=== PATIENT | female | born 1940 | race Caucasian/White ===

== ENCOUNTER → 2017-02-13 10:07 | Outpatient (CLI) | payer MEDICARE, OTHER, SELFPAY ==
[2017-02-13 10:52] LABS: Blood Urea Nitrogen 17 mg/dL (7-18); Creatinine,Serum 1.03 mg/dL (0.55-1.02); Estimated Glomerular Filt Rate 52 ml/min (>60); GFR (African American) > 60 ML/MIN (>60)
--- NOTE | 2017-02-13 10:56 | CT_ITS ---
CT chest w con HISTORY: Left-sided chest pain and swelling following injury ORDERING PHYSICIAN: Laith Agee MD PATIENT AGE: 76 years TECHNIQUE: Helical acquisition obtained following the bolus administration of 75 mL of Isovue 370 followed by a saline bolus. Axial, sagittal, and coronal reformatted images are generated and reviewed. COMPARISON: None FINDINGS: The thoracic aorta has an unremarkable appearance without evidence of aneurysm or dissection. No central pulmonary embolus apparent. There is prominence of the left atrial appendage incidentally noted. Normal heart size without evidence of pericardial effusion. No mediastinal or hilar mass or adenopathy. There are a few noncalcified pulmonary nodules including a 3 mm nodule right upper lobe laterally and a 5 mm nodule also in the right upper lobe laterally as well as a 4 mm nodule left upper lobe anteriorly. Atelectatic changes are present in the lung bases slightly more extensive on the left compared to the right. There is trace left-sided pleural effusion. There is no evidence of pneumothorax. There is an minimally displaced fracture involving the lateral aspect of the left ninth rib with some mild soft tissue swelling in this area. The underlying spleen has an unremarkable appearance. IMPRESSION: 1. Minimally displaced left ninth rib fracture laterally with adjacent soft tissue swelling 2. Trace left pleural effusion with left basilar atelectasis. 3. Scattered noncalcified pulmonary nodules nonspecific measuring up to 5 mm. Consider 6 month follow-up if patient is at high risk for neoplasm and one year follow-up if patient is not at high risk for neoplasm
--- NOTE | 2017-02-13 10:56 | CT_ITS ---
CT abdomen pelvis w con CLINICAL INDICATION: Left sided abdominal pain following injury ORDERING PHYSICIAN: Laith Agee MD PATIENT AGE: 76 years COMPARISON: None TECHNIQUE: Axial images obtained with sagittal and coronal reformats. PROCEDURE: Oral Contrast: None IV Contrast: 75 minutes Isovue-370. FINDINGS: There is trace left-sided pleural effusion with mild left basilar atelectasis. Minimal displaced left ninth rib fracture is present laterally. The spleen has an unremarkable appearance. No evidence of splenic laceration or subcapsular hematoma. The liver, adrenal glands, and pancreas are unremarkable. No renal calculi, hydronephrosis, or renal mass. No obstructing ureteral calculi. Unremarkable bowel gas pattern. No obstruction or free air. No focal inflammatory change. No evidence of appendicitis or diverticulitis. IMPRESSION: 1. Minimally displaced left ninth rib fracture laterally with trace left effusion and mild left basilar atelectasis. 2. No evidence of splenic laceration or subcapsular hematoma. 3. No acute intra-abdominal findings
== END ==
PROVIDERS: Family Provider Internal Medicine Adolescent Medicine; PCP Internal Medicine Adolescent Medicine; Visit Provider Internal Medicine Adolescent Medicine
DX: S20.212A Contusion of left front wall of thorax, initial encounter (principal); R19.07 Generalized intra-abdominal and pelvic swelling, mass and lump
CPT/HCPCS: 36415; 71260; 74177; 82565; 84520; Q9967

== ENCOUNTER → 2017-06-07 09:03 | Outpatient (CLI) | payer MEDICARE, OTHER, SELFPAY ==
--- NOTE | 2017-06-07 11:01 | XR_ITS ---
DEXA SCAN.-BONE DENSITY STUDY HIPS AND LUMBAR SPINE HISTORY: 76-year-old Postmenopausal female. TECHNIQUE: DEXA scan hip and lumbar spine The most complete data summary and color graphic presentation of the today's ( and any prior ) DEXA findings are available in PACS. Definition and treatment guidelines included. COMPARISON: None listed LUMBAR SPINE: Overall mean T score equal -2.5 L2 vertebral body demonstrates the lowest T score -3.2 with BMD0.812 g/cm sq Overall mean lumbar L1-L4 T score -2.5 with BMD0.874 g/cm sq . . HIPS: Femoral neck density is best predictor of hip fracture risk . Right femoral neck demonstrates the lowest T score score -2.2 with BMD0.78 g/cm sq Left femoral neck T score -1.8 with BMD 0.783 Averaging all regions at hips yields today's Hip Mean T score -2.5 with BMD0.696 g/cm sq . = Borderline/early osteoporosis IMPRESSION 1. LUMBAR SPINE: Overall T score = -2.5 reflects borderline, early osteoporosis The lowest T score value = -3.2 is seen at the L2 vertebral body. 2. HIPS: Overall T score -2.5 suggest Borderline, early osteoporosis The lower right femoral neck T score = -2.2 reflecting osteopenia at femoral necks WHO criteria for post-menopausal, Women: Normal: T-score at or above -1 SD Osteopenia: T-score between -1 and -2.5 SD Osteoporosis: T-score at or below -2.5 SD Post-stress ABIs: Immediate post stress right KARLA= 1.22 Immediate post stress left KARLA= 1.18 2.. Normal rest study right. Normal bilateral ABIs . Normal pulses and waveforms 3. Normal immediate post stress study. no exercise-induced ischemic nor decreased flow immediate post. In fact increased BP postexercise observed DEXA
== END ==
PROVIDERS: Family Provider Internal Medicine Adolescent Medicine; PCP Internal Medicine Adolescent Medicine; Visit Provider Internal Medicine Adolescent Medicine
DX: Z78.0 Asymptomatic menopausal state (principal); Z13.820 Encounter for screening for osteoporosis
CPT/HCPCS: 77080

== ENCOUNTER → 2017-06-24 11:47 | Outpatient (CLI) | payer MEDICARE, OTHER, SELFPAY ==
--- NOTE | 2017-06-24 11:55 | XR_ITS ---
XR wrist RT min 3V HISTORY ITS.REASON: RT WRIST PAIN,FALL ORDERING PHYSICIAN: Laith Agee MD PATIENT AGE: 76 years COMPARISON: None FINDINGS: There are mild osteoarthritic changes at the scaphotrapezium joint. No acute fracture or dislocation evident. IMPRESSION: Osteoarthritis of the scaphotrapezium joint, no acute finding
[2017-06-24 14:30] LABS: Basophils % 0.1 % (0.1-2.0); Eosinophils % 0.6 % (0.1-12.0); Hematocrit 42.4 % (37.0-47.0); Hemoglobin 13.9 g/dL (12.2-16.2); Lymphocytes # 1.4 K/mm3 (0.7-4.5); Lymphocytes % 24.6 K/mm3 (10-50); Mean Corpuscular HGB Conc 32.8 g/dL (31.8-35.4); Mean Corpuscular Hemoglobin 28.5 pg (27.0-31.2); Mean Corpuscular Volume 86.7 fl (81-99); Mean Platelet Volume 9.1 fl (7.4-10.4); Monocytes # 0.4 K/mm3 (0.1-1.0); Monocytes % 6.9 % (1.7-9.3); Neutrophils # 3.9 K/mm3 (1.8-7.8); Neutrophils % 67.7 % (37.0-80.0); Platelet Count 252 K/mm3 (142-424); Red Blood Count 4.89 M/mm3 (4.20-5.40); Red Cell Distribution Width 13.2 % (11.5-17.5); White Blood Count 5.8 K/mm3 (4.8-10.8)
[2017-06-24 14:48] LABS: Alanine Aminotransferase 25 U/L (12-78); Albumin Level 3.8 gm/dL (3.4-5.0); Albumin/Globulin Ratio 1.2 (1.1-1.8); Alkaline Phosphatase 113 U/L (46-116); Anion Gap 14.8 mEq/L (5-15); Aspartate Amino Transferase 16 U/L (15-37); Bilirubin,Total 0.6 mg/dL (0.2-1.0); Blood Urea Nitrogen 20 mg/dL (7-18); Calcium 9.4 mg/dL (8.5-10.1); Carbon Dioxide 26 mmol/L (21.0-32.0); Chloride 104 mmol/L (98-107); Creatinine,Serum 0.92 mg/dL (0.55-1.02); Estimated Glomerular Filt Rate 59 ml/min (>60); Free Thyroxine Index 2.7 ug/dL (5.93-13.13); GFR (African American) 72 ML/MIN (>60); Globulin 3.3 gm/dl (1.3-3.2); Glucose 87 mg/dL (74-106); Potassium 4.8 mmoL/L (3.5-5.1); Sodium 140 mmol/L (136-145); T4 (Thyroxine) 7.5 ug/dl (4.7-13.3); Thyroid Stimulating Hormone 1.48 uIU/ml (0.358-3.740); Total Protein,Serum 7.1 gm/dL (6.4-8.2); Triiodothryronine (T3) Uptake 36 % (31-39)
[2017-06-25 15:16] LABS: Vitamin B12 450 pg/mL (232-1245)
[2017-06-27 06:30] LABS: Methylmalonic Acid 263 nmol/L (0-378)
== END ==
PROVIDERS: PCP Internal Medicine Adolescent Medicine; Visit Provider Internal Medicine Adolescent Medicine
DX: M25.531 Pain in right wrist (principal); R27.0 Ataxia, unspecified; R47.89 Other speech disturbances; W19.XXXA Unspecified fall, initial encounter
CPT/HCPCS: 36415; 73110; 80053; 82131; 82607; 84436; 84443; 84479; 85025

== ENCOUNTER → 2017-06-28 15:54 | Outpatient (CLI) | payer MEDICARE, OTHER, SELFPAY ==
--- NOTE | 2017-06-28 15:56 | MR_ITS ---
MR head/brain wo con Ordering Physician: Laith Agee MD Patient Age: 76 years: Female HISTORY: ITS.REASON: ATAXIA ... Is submitted history with MRI order / technologist history states:,Can't get words out what she wants to say to come out since 2013 which may reflectapraxia history TECHNIQUE: noncontrast Multiplanar FLAIR, T1, T2 weighted images along with axial diffusion/ADC imaging performed on 1.5 T. Siemens, MRI.. COMPARISON MR brain 11/26/2016 FINDINGS No recent nor acute infarction is evident. No mass lesion or mass effect The ventricles appear normal. No hydrocephalus. Basal cisternsappear normal. . Overall brain is very well maintained for this age patient with only minor cerebral atrophy. Subtle Rim of high signal surrounding the anterior horn reflect aging changes of the ependyma here. Would only note 2 white matter high signal dots of increased signal on the sensitive FLAIR images. These are seen at the left cerebral hemisphere axial image 19 (just left of midline & deep to the sensory strip); and a second questionable pinpoint high signal focus on axial 17 just above the atria of the lateral ventricle & barely appreciable... These are minor, unimpressive, barely appreciable but likely due to reflect some very minor small vessel deep white matter ischemic gliotic foci. However this patient with less, fewer deep white matter findings typically seen in this age patient Pituitary sella unremarkable. Optic chiasm unremarkable. Speech centers unremarkable Posterior fossa. Appears satisfactory. No atrophy. Well-developed. No lesions. CP angles clear. Cranial nerve VII and VIII appears satisfactory. Mastoid air cells unremarkable. The cranial cervical junction appears overall satisfactory.. Only mildly accentuated angle at as in drapes slightly over the dens leading to the cervical cord. Adequate volume craniocervical junction and the cerebellar tonsils appear normal Uppermost C-spine demonstrates minimal cervical spondylosis at C3/4. Does not appear to be of significance.Otherwise the paranasal sinuses are clear. Orbits unremarkable IMPRESSION: No significant change since MRI of the brain November 2016. No acute finding. No territorial infarct. No mass lesion. No prominent findings , only very minor subtle observations, typical of age.. (Only suggestion ofq 2 very tiny pinpoint white matter high signal foci left cerebral hemisphere, Barely appreciable noted)
== END ==
PROVIDERS: Family Provider Internal Medicine Adolescent Medicine; PCP Internal Medicine Adolescent Medicine; Visit Provider Internal Medicine Adolescent Medicine
DX: R27.0 Ataxia, unspecified (principal); R47.89 Other speech disturbances
CPT/HCPCS: 70551

== ENCOUNTER 2017-09-25 09:00 | Outpatient (RCR) | payer MEDICARE, OTHER, SELFPAY ==
--- NOTE | 2017-09-18 10:52 | HMH.SLAPHASI ---
Speech & Language Evaluation Speech/Language Aphasia Evaluation Start: 09/18/17 09:45 Freq: once Status: Complete Protocol: Document 09/18/17 09:45 SUSIE (Rec: 09/18/17 10:52 SUSIE [id number]) Aphasia Assessment/Goals/Plan Assessment Date of Evaluation: 09/18/17 Evaluation Type Initial Certification Assessment/Problems Pt. reports difficulty with saying words. Does Patient Qualify for Service Yes Qualify/Failure Comment Mrs. Lilly presents with misarticulations, omissions and groping movements of her articulators. Symptoms persistant with apraxia of speech. Plan Pt will be seen # times/week 2 for # weeks 8 Anticipate reaching STG in # weeks 4 Anticipate reaching LTG in # weeks 8 Pt/Guardian verbally ack understanding Yes of dx/prognosis/goals Pt/Guardian verbally ack understanding Yes of/consent to tx prog G -code Required Yes G-CODES ST Current Status [id number] Speech ST Current Status Modifier CJ-At least 20% but less than 40% impaired, limited or restricted ST Goal Status [id number] Speech ST Goal Status Modifier CJ-At least 20% but less than 40% impaired, limited or restricted STG-Verbal Expressive Language Automatic Speech 80 Repetitive Abilities 80 STG-Intell/Buccal/Labial Strength Intelligibility 80 Quality Improvement Analyst Goals Increase oral motor tone to improve Yes intelligibility. Increase intelligibility w/use of Yes traditional articulation treatment. Education Instructions provided Mrs. Lilly, verbally aknowledged evaluation results and agrees to therapy. She wants to initiate therapy to learn compensatory strategies, anxiety reduction for speech, and improve articulation. Pt/Caregiver Able to Recall Information Able to recall/restate Reinforcement needed No Speech & Language HPI History Present Illness Description of Patient Problem Mrs. Lilly reports she has had difficulty with her speech since 2015. She reports having diffiuculty forming words. She says she knows what she wants to say, but cannot get it to c
== END 2017-09-25 09:01 | disposition home or self-care (01) ==
LOC: ST 09:00
PROVIDERS: Family Provider Internal Medicine Adolescent Medicine; PCP Internal Medicine Adolescent Medicine; Visit Provider Internal Medicine Adolescent Medicine
DX: R47.01 Aphasia (principal); R47.89 Other speech disturbances
CPT/HCPCS: 92507; 92523; 97532

== ENCOUNTER → 2017-11-06 09:42 | Outpatient (CLI) | payer MEDICARE, OTHER, SELFPAY ==
--- NOTE | 2017-11-06 10:31 | MR_ITS ---
MR head/brain wo con HISTORY: Slurred speech, history of brain tumors, family history of brain tumors ITS.REASON: SLURRED SPEECH, HX BRAIN TUMORS ORDERING PHYSICIAN: Brian Cade PATIENT AGE: 77 years Comparison: None TECHNIQUE: Standard multiplanar multiecho sequences are performed without contrast. FINDINGS: No midline shift, mass effect, intracranial hemorrhage, or hydrocephalus is evident. There is mild generalized atrophy. No evidence of infarction. The cerebellopontine angles, cerebellum, and brainstem are unremarkable. There is normal orta-white matter differentiation. A tiny T2 white matter hyperintensity once again noted in the left parietal lobe unchanged and nonspecific. The pituitary, optic chiasm, and cerebellar tonsils are unremarkable. The hippocampal gyri are unremarkable in the temporal horns are symmetric. No mastoid effusion or sinus air-fluid level. IMPRESSION: 1. Essentially negative MRI of the brain without contrast with no significant change from 06/28/2017. 2. No intra or extra-axial mass is apparent. No evidence of acute infarction
[2017-11-06 11:41] LABS: Basophils % 0.1 % (0.1-2.0); Eosinophils # 0.1 K/mm3 (0.0-0.4); Eosinophils % 1.4 % (0.1-12.0); Hematocrit 41.9 % (37.0-47.0); Hemoglobin 13.5 g/dL (12.2-16.2); Lymphocytes # 1.4 K/mm3 (0.7-4.5); Lymphocytes % 28.2 K/mm3 (10-50); Mean Corpuscular HGB Conc 32.2 g/dL (31.8-35.4); Mean Corpuscular Hemoglobin 28.3 pg (27.0-31.2); Mean Corpuscular Volume 87.8 fl (81-99); Mean Platelet Volume 8.6 fl (7.4-10.4); Monocytes # 0.4 K/mm3 (0.1-1.0); Monocytes % 7.1 % (1.7-9.3); Neutrophils # 3.2 K/mm3 (1.8-7.8); Neutrophils % 63.1 % (37.0-80.0); Platelet Count 232 K/mm3 (142-424); Red Blood Count 4.77 M/mm3 (4.20-5.40); Red Cell Distribution Width 13.2 % (11.5-17.5)
[2017-11-06 12:00] LABS: Alanine Aminotransferase 21 U/L (12-78); Albumin Level 3.4 gm/dL (3.4-5.0); Albumin/Globulin Ratio 1.1 (1.1-1.8); Alkaline Phosphatase 116 U/L (46-116); Anion Gap 11.8 mEq/L (5-15); Aspartate Amino Transferase 14 U/L (15-37); Bilirubin,Total 0.5 mg/dL (0.2-1.0); Blood Urea Nitrogen 19 mg/dL (7-18); Calcium 8.9 mg/dL (8.5-10.1); Carbon Dioxide 29 mmol/L (21.0-32.0); Chloride 104 mmol/L (98-107); Cholesterol 191 mg/dL (140-200); Creatinine,Serum 0.93 mg/dL (0.55-1.02); Estimated Glomerular Filt Rate 58 ml/min (>60); Free T4 (Free Thyroxine) 0.97 ng/dl (0.76-1.46); GFR (African American) 71 ML/MIN (>60); Globulin 3.1 gm/dl (1.3-3.2); Glucose 82 mg/dL (74-106); HDL Cholesterol 64 mg/dL (29-89); LDL Cholesterol 106 mg/dL (0-130); Potassium 4.8 mmoL/L (3.5-5.1); Sodium 140 mmol/L (136-145); Thyroid Stimulating Hormone 2.47 uIU/ml (0.358-3.740); Total Protein,Serum 6.5 gm/dL (6.4-8.2); Triglycerides 103 mg/dL (30-200); VLDL Cholesterol 21 mg/dL (0-40)
[2017-11-07 08:38] LABS: Vitamin D 25 Hydroxy 36.5 ng/mL (30.0-100.0)
[2017-11-07 12:55] LABS: Vitamin B12 441 pg/mL (232-1245)
== END ==
PROVIDERS: PCP Family Medicine; Visit Provider Family Medicine
DX: R47.81 Slurred speech (principal); R05 Cough; E78.2 Mixed hyperlipidemia; R53.83 Other fatigue; Z85.841 Personal history of malignant neoplasm of brain
CPT/HCPCS: 36415; 70551; 80053; 80061; 82607; 82652; 84439; 84443; 85025

== ENCOUNTER → 2018-07-30 09:02 | Outpatient (CLI) | payer MEDICARE, OTHER, SELFPAY ==
--- NOTE | 2018-07-30 09:50 | MR_ITS ---
MR head/brain w con A HISTORY: ITS.REASON: EXPRESSIVE APHASIA ORDERING PHYSICIAN: Wendy Milan PATIENT AGE: 77 years Comparison: 11/06/2017 TECHNIQUE: Standard multiplanar multiecho sequences are performed with gadolinium enhancement only. Standard pre enhanced T1 weighted images and standard T2/FLAIR weighted images and diffusion images were not performed. FINDINGS: No midline shift or mass effect is evident. There is a small area of subdural enhancement in the left sylvian region measuring 12 x 6 x 9 mm and may represent a small meningioma. No mass effect evident. No overlying edema. No other abnormal areas of enhancement are evident. IMPRESSION: 12 x 6 x 9 mm mildly enhancing subdural lesion in the left sylvian area consistent with a small meningioma
[2018-07-30 10:38] LABS: Alanine Aminotransferase 38 U/L (12-78); Albumin Level 3.4 gm/dL (3.4-5.0); Alkaline Phosphatase 102 U/L (46-116); Anion Gap 11.6 mEq/L (5-15); Aspartate Amino Transferase 27 U/L (15-37); Bilirubin,Total 0.4 mg/dL (0.2-1.0); Blood Urea Nitrogen 16 mg/dL (7-18); Calcium 8.3 mg/dL (8.5-10.1); Carbon Dioxide 27 mmol/L (21.0-32.0); Chloride 106 mmol/L (98-107); Creatinine,Serum 1.05 mg/dL (0.55-1.02); Estimated Glomerular Filt Rate 51 ml/min (>60); GFR (African American) 61 ML/MIN (>60); Globulin 3.4 gm/dl (1.3-3.2); Glucose 93 mg/dL (74-106); Potassium 4.6 mmoL/L (3.5-5.1); Sodium 140 mmol/L (136-145); Total Protein,Serum 6.8 gm/dL (6.4-8.2)
--- NOTE | 2018-07-30 11:06 | HMH.ITSHM ---
Current Home Medications as stated by this patient Jalyn Lilly or field representatives director. []ASPIRIN
[2018-07-30 11:20] LABS: Erythrocyte Sedimentation Rate 14 mm/hr (0-30)
[2018-07-30 14:02] LABS: Basophils % 0.1 % (0.1-2.0); Eosinophils # 0.1 K/mm3 (0.0-0.4); Eosinophils % 1.2 % (0.1-12.0); Hematocrit 41.1 % (37.0-47.0); Lymphocytes # 1.5 K/mm3 (0.7-4.5); Lymphocytes % 28.2 % (10-50); Mean Corpuscular HGB Conc 31.7 g/dL (31.8-35.4); Mean Corpuscular Hemoglobin 26.7 pg (27.0-31.2); Mean Corpuscular Volume 84.3 fl (81-99); Monocytes # 0.4 K/mm3 (0.1-1.0); Monocytes % 7.8 % (1.7-9.3); Neutrophils # 3.3 K/mm3 (1.8-7.8); Neutrophils % 62.7 % (37.0-80.0); Platelet Count 254 K/mm3 (142-424); Red Blood Count 4.87 M/mm3 (4.20-5.40); Red Cell Distribution Width 13.1 % (11.5-17.5); White Blood Count 5.2 K/mm3 (4.8-10.8)
[2018-07-31 18:58] LABS: Folate 12.7 ng/mL (>3.0); Vitamin B12 441 pg/mL (232-1245)
== END ==
PROVIDERS: Referring Provider Psychiatry & Neurology Neurology; Visit Provider Psychiatry & Neurology Neurology
DX: R41.89 Other symptoms and signs involving cognitive functions and awareness (principal)
CPT/HCPCS: 36415; 70552; 80053; 82607; 82746; 85025; 85651; A9576

== ENCOUNTER → 2018-10-14 09:18 | Outpatient (CLI) | payer MEDICARE, OTHER, SELFPAY | PROVIDERS: PCP Family Medicine; Visit Provider Psychiatry & Neurology Neurology | DX: G31.01 Pick's disease (principal) | CPT/HCPCS: 95819 ==

== ENCOUNTER → 2019-02-24 11:28 | Outpatient (CLI) | payer MEDICARE, OTHER, SELFPAY ==
--- NOTE | 2019-02-24 11:51 | ECG_ITS ---
APPROVED REPORT Exam: Resting ECG HR:50 bpm ECG Measurements Heart Rate 50 AXES NM 120 P 54 QRSd 78 QRS 10 QT 446 T 22 QTc 406 <Conclusion> Sinus bradycardia with occasional premature ventricular complexes Left atrial abnormality Borderline ECG Electronically signed by : Laith Agee, 02/26/2019 07:38:40
[2019-02-24 12:05] LABS: Basophils % 0.2 % (0.1-2.0); Eosinophils % 0.3 % (0.1-12.0); Hematocrit 43.3 % (37.0-47.0); Hemoglobin 14.1 g/dL (12.2-16.2); Lymphocytes # 1.9 K/mm3 (0.7-4.5); Lymphocytes % 20.1 % (10-50); Mean Corpuscular HGB Conc 32.5 g/dL (31.8-35.4); Mean Corpuscular Hemoglobin 28.8 pg (27.0-31.2); Mean Corpuscular Volume 88.5 fl (81-99); Mean Platelet Volume 8.5 fl (7.4-10.4); Monocytes # 0.6 K/mm3 (0.1-1.0); Monocytes % 5.8 % (1.7-9.3); Neutrophils # 7.1 K/mm3 (1.8-7.8); Neutrophils % 73.6 % (37.0-80.0); Platelet Count 326 K/mm3 (142-424); Red Cell Distribution Width 13.3 % (11.5-17.5); White Blood Count 9.6 K/mm3 (4.8-10.8)
[2019-02-24 13:22] LABS: Alanine Aminotransferase 24 U/L (12-78); Albumin Level 3.7 gm/dL (3.4-5.0); Albumin/Globulin Ratio 1.2 (1.1-1.8); Alkaline Phosphatase 115 U/L (46-116); Anion Gap 13.6 mEq/L (5-15); Aspartate Amino Transferase 15 U/L (15-37); Bilirubin,Total 0.6 mg/dL (0.2-1.0); Blood Urea Nitrogen 18 mg/dL (7-18); Calcium 9.2 mg/dL (8.5-10.1); Carbon Dioxide 27 mmol/L (21.0-32.0); Chloride 101 mmol/L (98-107); Creatinine,Serum 1.02 mg/dL (0.55-1.02); Estimated Glomerular Filt Rate 52 ml/min (>60); GFR (African American) 63 ML/MIN (>60); Globulin 3.1 gm/dl (1.3-3.2); Glucose 91 mg/dL (74-106); Potassium 4.6 mmoL/L (3.5-5.1); Sodium 137 mmol/L (136-145); Total Protein,Serum 6.8 gm/dL (6.4-8.2)
== END ==
PROVIDERS: Visit Provider Orthopaedic Surgery
DX: Z01.818 Encounter for other preprocedural examination (principal); S52.532A Colles' fracture of left radius, initial encounter for closed fracture; S52.612A Displaced fracture of left ulna styloid process, initial encounter for closed fracture
CPT/HCPCS: 36415; 80053; 85025; 93005

== ENCOUNTER → 2019-03-17 14:25 | Outpatient (CLI) | payer MEDICARE, OTHER, SELFPAY ==
--- NOTE | 2019-03-17 14:30 | XR_ITS ---
PROCEDURE: XR WRIST LT MIN 3V CLINICAL INDICATION: sp ORIF LT wrist, dos 03/02/19 Follow-up surgery/fracture COMPARISON: WRISTCMRT XR wrist RT min 3V from 06/24/2017 XR WRIST LT MIN 3V from 02/22/2019 XR WRIST LT 2V from 03/02/2019 FINDINGS: Studies obtained through a cast. There is a volar bone plate stabilizing distal radial fracture with good alignment. Nondisplaced ulnar avulsion fracture also noted.. Osteoarthritic changes are present at the scapho trapezium and 1st metacarpal-carpal joint IMPRESSION: Good alignment status post ORIF distal radial fracture Dictated by: Ethan Murguia MD 03/17/2019 18:13 Electronically signed by Ethan Murguia MD in [place] 03/17/2019 18:13
== END ==
PROVIDERS: PCP Internal Medicine Adolescent Medicine; Visit Provider Orthopaedic Surgery
DX: Z48.89 Encounter for other specified surgical aftercare (principal); S52.612A Displaced fracture of left ulna styloid process, initial encounter for closed fracture
CPT/HCPCS: 73110

== ENCOUNTER → 2019-04-07 12:18 | Outpatient (CLI) | payer MEDICARE, OTHER, SELFPAY ==
--- NOTE | 2019-04-07 12:22 | XR_ITS ---
PROCEDURE: XR WRIST LT MIN 3V CLINICAL INDICATION: sp ORIF lt wrist; OUT OF CAST Follow-up ORIF COMPARISON: WRISTCMRT XR wrist RT min 3V from 06/24/2017 XR WRIST LT MIN 3V from 02/22/2019 XR WRIST LT MIN 3V from 03/17/2019 FINDINGS: Cast has been removed. Volar bone plate remains in place stabilizing the distal radial fracture with good alignment. There is sclerosis developing at the fracture site. There is avulsion of the ulnar styloid. Degenerative changes are present involving the scapho trapezium and 1st metacarpal-carpal joint. IMPRESSION: Status post ORIF healing distal radial fracture with good alignment Dictated by: Ethan Murguia MD 04/07/2019 16:11 Electronically signed by Ethan Murguia MD in [place] 04/07/2019 16:11
== END ==
PROVIDERS: PCP Internal Medicine Adolescent Medicine; Visit Provider Orthopaedic Surgery
DX: Z48.89 Encounter for other specified surgical aftercare (principal); S52.502D Unspecified fracture of the lower end of left radius, subsequent encounter for closed fracture with routine healing
CPT/HCPCS: 73110

== ENCOUNTER 2019-04-07 13:25 | Outpatient (RCR) | payer MEDICARE, OTHER, SELFPAY | END 2019-04-07 14:00 | disposition home or self-care (01) | LOC: OT 13:25 | PROVIDERS: Visit Provider Orthopaedic Surgery | DX: S52.532A Colles' fracture of left radius, initial encounter for closed fracture (principal); S52.612A Displaced fracture of left ulna styloid process, initial encounter for closed fracture | CPT/HCPCS: 97763 ==

== ENCOUNTER 2019-04-24 10:00 | Outpatient (RCR) | payer MEDICARE, OTHER, SELFPAY ==
--- NOTE | 2018-10-07 13:21 | HMH.SLAPHASI ---
Speech & Language Evaluation Speech/Language Aphasia Evaluation Start: 10/07/18 12:56 Freq: once Status: Complete Protocol: Document 10/07/18 12:56 SHANAE (Rec: 10/07/18 13:20 SHANAE [id number]) Aphasia Assessment/Goals/Plan Assessment Date of Evaluation: 10/07/18 Evaluation Type Initial Certification Assessment/Problems Aphasia Does Patient Qualify for Service Yes Qualify/Failure Comment Scores indicate impairments in auditory comprehension, reading comprehension, and verbal expression. Plan Pt will be seen # times/week 2 for # weeks 8 Anticipate reaching STG in # weeks 4 Anticipate reaching LTG in # weeks 8 Pt/Guardian verbally ack understanding Yes of dx/prognosis/goals G -code Required Yes G-CODES ST Current Status [id number] Language Express ST Current Status Modifier CL-At least 60% but less than 80% impaired, limited or restricted ST Goal Status [id number] Language Express ST Goal Status Modifier CK-At least 40% but less than 60% impaired, limited or restricted STG-Auditory Comprehension Paragraph Level 80 STG-Reading Comprehension Reading Sentences & Ans Questions 80 Reading Paragraphs & Ans Questions 80 STG-Verbal Expressive Language Repetitive Abilities 80 Make Up Sentences 80 Define Words 80 Snf Goals Increase auditory comprehension skills Yes to communicate w/family & friends Increase verbal expression skills to Yes communicate w/family & friends. Increase cognitive skills to communicate Yes w/family & friends Speech & Language HPI History Present Illness Description of Patient Problem Aphasia Pt/Caregiver Concerns Word finding Rehab Services Assessed Speech therapy Is this evaluation r/t stroke? No Language Primary Language Swiss Aphasia Evaluations Communication Speech Intelligibility Good Auditory Comprehension Yes: Word Level Sentences Reading Comprehension Yes: Word Naming Verbal Expressive Language Yes: Automatic Speech Word Level Naming Naming Actions/Objects Written Language Yes: Signature Copy Shapes Copy Words Check Writing Sentence Writing AOM Comment Could not assess at this
== END 2019-04-24 11:00 | disposition home or self-care (01) ==
LOC: ST 10:00
PROVIDERS: PCP Family Medicine; Visit Provider Psychiatry & Neurology Neurology
DX: R47.01 Aphasia (principal)
CPT/HCPCS: 92507; 92523

== ENCOUNTER 2019-04-24 11:00 | Outpatient (RCR) | payer MEDICARE, OTHER, SELFPAY ==
--- NOTE | 2019-04-10 11:31 | HMH.PTOPEV ---
PT Outpatient Evaluation Rehab PT Outpatient Evaluation Start: 04/10/19 10:37 Freq: Status: Active Protocol: Document 04/10/19 10:37 EDUARDO (Rec: 04/10/19 11:31 [email or web address] [id number]) Electronically Signed By Cosme Barrera, DAJUAN 04/10/19 10:37 Outpatient Therapy Subjective History Subjective History Pt. is a 78 year old female who presents to outpatient PT clinic with reports of subacute and constant L wrist P! s/p L wrist ORIF distal radius fx. 6 weeks ago. Pt. reports she fell off of a stool and tried to catch herself with the LUE. Pt. reports donning L wrist brace at all times except for bathing. Recent diagnostic imaging positive for healing distal radial fracture with good alignment. Pt. RTMD 4 wks . from 04/07/19. PMH includes Alzhemier's disease and Aphasia. Chief Complaint Pain,Swelling Symptom Type Ache Symptoms Relieved By Rest/Positioning,Brace/Support Symptoms Aggravated By Physical Activity Prior Functional Limitations None Current Functional Limitations Lifting,Dressing,Recreation Activity Symptom Description Constant and Continuous Level of pain today (0-10) 1 Pain scale - at its best (0-10) 0 Pain scale - at its worst (0-10) 8 Wrist/Hand Eval Palpation Tenderness/Visual Exam Wrist pain left tenderness wrist exam standard left Wrist swelling left Wrist/Hand Palpation Findings Tenderness Wrist/Hand Palpation Overall Comment grade 2 +TTP to dorsal ulnar styloid Flexibility Deficits Wrist Extensors Muscle Length (L) Moderate Tightness Wrist Flexors Muscle Length (L) Moderate Tightness Wrist Range of Motion Left Wrist Limitations of Range of Motion Soft Tissue Tightness,Muscle Weakness,Pain Wrist Extension Active Range of Motion ( 17 degrees) Wrist Extension Passive Range of Motion 31 (degrees) Wrist Flexion Active Range of Motion ( 30 degrees) Wrist Flexion Passive Range of Motion ( 37 degrees) Wrist Radial Deviation Active Range of 14 Motion (degrees) Wrist Radial Deviation Passive Range of 19 Motion (degrees) Wrist Ulnar Deviation Active
== END 2019-05-13 15:00 | disposition home or self-care (01) ==
LOC: PT.CARL 11:00
PROVIDERS: PCP Internal Medicine Adolescent Medicine; Visit Provider Orthopaedic Surgery
DX: S52.532D Colles' fracture of left radius, subsequent encounter for closed fracture with routine healing (principal); S52.612D Displaced fracture of left ulna styloid process, subsequent encounter for closed fracture with routine healing; Z48.89 Encounter for other specified surgical aftercare
CPT/HCPCS: 97018; 97110; 97140; 97163

== ENCOUNTER 2019-04-26 13:02 | Inpatient (IN) ==
[2019-04-26 13:58] LABS: Appearance,Urine CLEAR (Clear); Bilirubin,Urine Negative (Negative); Blood, Urine 3+ (Negative); Color,Urine YELLOW (Yellow); Glucose,Urine (UA) Negative (Negative); Ketones,Urine Negative (Negative); Leukocyte Esterase,Urine TRACE (Negative); Microscopic, Urine URINE MICROSCOPIC (MICROSCOPIC); PH,Urine 5.5 (5.0-8.5); Protein,Urine 1+ (Negative); Specific Gravity, Urine >= 1.030 (1.005-1.030); Urobilinogen,Urine 0.2 EU/dl (0.2)
[2019-04-26 14:05] LABS: Albumin Level 4.4 g/dl (3.5-5.0); Albumin/Globulin Ratio 1.4 (1.1-1.8); Anion Gap 16.1 mEq/L (5-15); Bilirubin,Total 0.6 mg/dl (0.2-1.3); Eosinophils % 0.1 % (0.1-12.0); Globulin 3.1 g/dL (1.3-3.2); Hemoglobin 15.4 g/dL (12.2-16.2); Lymphocytes # 0.4 K/mm3 (0.7-4.5); Lymphocytes % 1.8 % (10-50); Mean Corpuscular HGB Conc 33.5 g/dL (31.8-35.4); Mean Corpuscular Volume 88.7 fl (81-99); Mean Platelet Volume 8.7 fl (7.4-10.4); Monocytes # 0.9 K/mm3 (0.1-1.0); Monocytes % 3.4 % (1.7-9.3); Neutrophils # 23.3 K/mm3 (1.8-7.8); Neutrophils % 94.7 % (37.0-80.0); Platelet Count 257 K/mm3 (142-424); Red Blood Count 5.18 M/mm3 (4.20-5.40); Red Cell Distribution Width 13.7 % (11.5-17.5); Total Protein,Serum 7.5 g/dl (6.3-8.2)
--- NOTE | 2019-04-26 14:07 | Emergency Department Note ---
ED Disposition Clinical Impression: Gastroenteritis, Sepsis, Enteritis Disposition: Admitted as Observation Condition on Discharge: Good Instructions: DI for Diarrhea and Traveler's Diarrhea -- Adult, DI for Diarrhea and Traveler's Diarrhea -- Child, DI for Nausea -- Adult, DI for Nausea -- Child Additional Instructions: I spoke to Dr. Gomez for admission with this patient and he did agree. Prescriptions: Ondansetron [Zofran 4mg ODT] 4 mg PO TID PRN 3 Days #12 tab.rapdis PRN Reason: Nausea Transmission Status: Received by [id number] Referrals: Laith Agee MD [Primary Care Provider] - - Critical Care Critical Care Time: No Attestation: On 04/26/19, the high probability of a clinically significant, sudden or life threatening deterioration of the following system(s) required my full and direct attention, intervention and personal management. The time I documented below is in addition to time spent performing reported procedures but includes the following listed in this critical care notation. Medical Decision Making - Medical Records Medical records reviewed: Yes: I reviewed the patient's medical records. - Mason Inquiry Pt receiving controlled substance: No Vital Signs: 04/26/19 13:33 Temperature 98.3 F Temperature Source Oral Pulse Rate [Left Radial] 102 H Respiratory Rate 20 Blood Pressure [Right Arm] 137/76 Blood Pressure Mean [Right Arm] 96 Blood Pressure Position [Right Arm] Sitting 02 Sat by Pulse Oximetry 98 Oxygen Delivery Method Room Air - Lab Data Lab results reviewed: Yes: I reviewed the patient's lab results. Lab Results 04/26/19 13:35: Urine Color Yellow, Urine Appearance Clear, Urine pH 5.5, Ur Specific [place] >= 1.030, Urine Protein 1+, Urine Glucose (UA) Negative, Urine Ketones Negative, Urine Blood 3+, Urine Nitrate Negative, Urine Bilirubin Negative, Urine Urobilinogen 0.2, Ur Leukocyte Esterase Trace, Urine RBC 3-5, Urine WBC 10-20, Ur Squamous Epith Cells Occasional, Ur Transition Epith Cell 3- 5, Amorphous Sediment 1+, Urine Bacteria None, Hyaline Casts Occasional 04/26/19 13:35: WBC 24.0 H*, RBC 5.18, Hgb 15.4, Hct 46.0, MCV 88.7, MCH 29.7, MCHC 33.5, RDW 13.7, Plt Count 257, MPV 8.7, Neut % (Auto) 94.7 H, Lymph % (Auto) 1.8 L, [place] % (Auto) 3.4, Eos % (Auto) 0.1, Baso % (Auto) 0.0 L, Neut # (Auto) 23.3 H, Lymph # (Auto) 0.4 L, [place] # (Auto) 0.9, Eos # (Auto) 0.0, Baso # (Auto) 0.0, Total Counted 100, Neutrophils % (Manual) 94 H, Lymphocytes % (Manual) 1 L, Monocytes % (Manual) 5, Platelet Estimate Normal, RBC Morphology Normal 04/26/19 13:35: Sodium 135 L, Potassium 4.1, Chloride 97 L, Carbon Dioxide 26, Anion Gap 16.1 H, BUN 17, Creatinine 0.90, Estimated Creat Clear 56, Estimated GFR 60, Est GFR ( Amer) 73, Glucose 173 H, Calcium 10.0, Total Bilirubin 0.6, AST 34, ALT 41, Alkaline Phosphatase 100, Total Protein 7.5, Albumin 4.4, Globulin 3.1, Albumin/Globulin Ratio 1.4, Amylase 110 04/26/19 13:35: Troponin I 0.15 H, Lipase 501 H 04/26/19 14:25: Lactate 4.1 H Result diagrams: 04/26/19 13:35 04/26/19 13:35 Orders (Tests/Meds): ED MEDICATIONS Generic Name Dose Route Start Last Admin Trade Name Freq PRN Reason Stop Dose Admin Sodium Chloride 2,310 mls @ 1,155 mls/hr 04/26/19 15:03 Sod Chlor 0.9% 1000ml Bag 30 ml/kg infuse over 2 hr (2310 ml) 04/26/19 17:02 IV .Q2H ONE Discontinued Medications Generic Name Dose Route Start Last Admin Trade Name Freq PRN Reason Stop Dose Admin Sodium Chloride 1,000 mls @ 999 mls/hr 04/26/19 13:45 04/26/19 13:49 Sod Chlor 0.9% 1000ml Bag IV 04/26/19 14:45 999 mls/hr .Q1H1M RAJESH Administration Ioversol 75 ml 04/26/19 14:59 04/26/19 15:00 Rad-Optiray 350 150ml Vial IV 04/26/19 15:00 75 ml ONCE ONE Administration Sodium Chloride 10 ml 04/26/19 14:59 04/26/19 15:00 Rad-Saline Flush 10ml Syringe IV 04/26/19 15:00 10 ml ONCE ONE Administration ORDERS Category Date Time Status Troponin I Q3H Lab 04/26/19 16:45 Ordered Troponin I Q3H Lab 04/26/19 19:45 Ordered Blood Culture Stat Micro 04/26/19 14:15 Received Urine Culture Stat Micro 04/26/19 13:35 Received - Radiology Data #1 Image(s): Chest Preliminary Findings: Abnormal (Lateral lower lobe atelectasis) - CT Data CT Scan: Abdomen Time Received: 15:30 Preliminary Findings: Abnormal (Enteritis seen in large intestine but no evidence of any obstruction or any other acute abdominal pathology) - Tissue Perfus/Sepsis Re-Eval Sepsis Re-Evaluation Performed: Yes Date Performed: 04/26/19 Time Performed: 15:33 Nausea/Vomiting/Diarrhea HPI - General Chief complaint: Nausea/Vomiting/Diarrhea Stated complaint: Vomiting, Diarrhea, chills Time Seen by Provider: 04/26/19 14:00 Mode of Arrival: Ambulatory Source of Information: Patient, Relative Limitations: Language Barrier Description of Symptoms (Recalled from ER Triage Doc. by RN): TO ED PER [facility] [facility] WITH C/O NAUSEA, VOMITING, DIARRHEA. GENERALIZED WEAKNESS X 1 WEEK SEEN LAST SATURDAY IN ED [facility] HX PER FAMILY PT WITH HX OF DEMENTIA. PT DENIES ANY ABD PAIN, FEVER, SICK CONTACTS - History of Present Illness HPI Narrative: 78-year-old female presents the ED with nausea and vomiting x2 days. She was seen at the [facility] and they did a flu screen on her and it did come back negative but they told her she had "" a touch of the flu. Unsure what that really means but nonetheless patient denies any other symptoms she does have Alzheimer's disease and is not a very good historian most the history was obtained from the son and . Patient denies any shortness of breath patient denies any cough patient denies any fever. - Related Data Home Medications Medication Instructions Recorded Confirmed memantine 10 mg tablet 10 mg PO QPM 02/24/19 04/07/19 rivastigmine 9.5 mg TRANSDERMA DAILY 02/24/19 04/07/19 Previous Rx's Medication Instructions Recorded Ondansetron [Zofran 4mg ODT] 4 mg PO TID PRN 3 Days #12 04/26/19 tab.rapdis Allergies Allergy/AdvReac Type Severity Reaction Status Date / Time No Known Allergies Allergy Verified 04/07/19 12:57 [facility] History - Hepatitis A Screen Drug use history?: No High risk sexual behaviors?: No History of sexually transmitted infection?: No Currently employed?: No Childcare worker?: No Do you have indoor plumbing?: Yes Do you have electricity?: Yes Attestation statement:: This patient has been screened for Hepatitis A risk factors. I have reviewed the patient's past medical history: Yes Medical History: Reports:: Dementia Denies:: Cancer, Diabetes Mellitus Type 1, Diabetes Mellitus Type 2, Internal Pacemaker, MRSA, Seizures Other Medical History: Reports: Arthritis. Denies: Blood Transfusion Reaction Other Surgeries: Yes: No Previous Surgery. No: Pacemaker Amputation: No Fractures: Yes - Social History Smoking Status: Never smoker Alcohol Intake: never Substance Use Type: denies use Occupational Status: other Housing: house Household Members: spouse Family Hx:: No significant family history, Cancer ROS Obtained: Yes All systems reviewed & no additional complaints - Constitutional Constitutional: Reports system reviewed and no additional complaints, except as docu - Eyes Eyes: Reports system reviewed and no additional complaints, except as docu - ENT Ears, Nose, Mouth, and Throat: Reports system reviewed and no additional complaints, except as docu - Cardiovascular Cardiovascular: Reports system reviewed and no additional complaints, except as docu - Respiratory Respiratory: Yes system reviewed and no additional complaints, except as docu - Gastrointestinal Gastrointestingal: Reports: system reviewed and no additional complaints, except as docu - Genitourinary Male Genitourinary: Reports system reviewed and no additional complaints, except as docu Female Genitourinary: Reports system reviewed and no additional complaints, except as docu - Musculoskeletal Musculoskeletal: Reports system reviewed and no additional complaints, except as docu - Integumentary/Breasts Skin/Breast: Reports system reviewed and no additional complaints, except as docu - Neurologic Neurologic: Reports system reviewed and no additional complaints, except as docu - Endocrine Endocrine: Reports system reviewed and no additional complaints, except as docu - Hematologic/Lymphatic Henatologic/Lymphatic: Reports system reviewed and no additional complaints, except as docu - Allergic/Immunologic Allergic/Immunologic: Reports system reviewed and no additional complaints, except as docu Physical Exam - General General appearance: alert, in no apparent distress - Head Head exam: atraumatic, normocephalic - Eye Eye exam: Present: normal appearance, PERRL - ENT ENT exam: Present: normal exam, normal oropharynx - Neck Neck exam: Present: normal inspection, full ROM - Chest Chest inspection: Present: normal inspection, symmetric chest wall rise - Respiratory Respiratory exam: Present: normal lung sounds bilaterally - Cardiovascular Cardiovascular exam: Present: regular rate, normal rhythm - Abdominal Exam Abdominal exam: Present: soft - Extremities Exam Extremities exam: Present: normal inspection - Back Exam Back exam: Present: normal inspection - Neurological Exam Neurological exam: Present: alert, oriented X3 - Psychiatric Psychiatric exam: Present: normal affect, normal mood - Skin Skin exam: Present: warm, dry, intact - Lymphatic Lymphatic Findings: no adenopathy
[2019-04-26 14:15] LABS: Amorphous Sediment,Urine 1+ /lpf; Squamous Epithelial Cell,Urine Occasional #/hpf (0-5)
[2019-04-26 14:16] LABS: Hyaline Casts,Urine Occasional #/lpf (0)
[2019-04-26 14:23] LABS: Lymphocytes % 1 % (10-50); Monocytes % 5 % (2-9); Neutrophils % 94 % (42-76); RBC Morphology Normal; Total Cells Counted 100
--- NOTE | 2019-04-27 08:23 | History & Physical Report ---
*Admission Date: 04/26/19 *Chief complaint: Abdominal pain/vomiting/diarrhea *History of present illness: 78-year-old white female who is in robust physical health but unfortunately afflicted with moderate dementia, who presented to the emergency department in the afternoon hours of April 25 with vomiting and diarrhea and feelings of abdominal pain. Work-up revealed minimally elevated white count, otherwise labs were okay, but CT scan showed evidence of duodenitis and enteritis. Given patient's poor p.o. intake she was admitted to hospital for further evaluation and further diagnostic testing and treatment of her enteritis. [facility] History I have reviewed the patient's past medical history: Yes Medical History: Reports:: Dementia Denies:: Cancer, Diabetes Mellitus Type 1, Diabetes Mellitus Type 2, Internal Pacemaker, MRSA, Seizures *Have you ever received a pneumonia vaccine?: No *Have you received a flu vaccine this season?: Yes Other Medical History: Reports: Arthritis. Denies: Blood Transfusion Reaction Other Surgeries: Yes: No Previous Surgery. No: Pacemaker Amputation: No Fractures: Yes - *Social History Educational Level: Completed High School Smoking Status: Never smoker Alcohol Intake: never Substance Use Type: denies use *Occupational Status:: disabled Housing: house Household Members: spouse *Travel in the last 8 weeks: None Family Hx:: No significant family history, Cancer Review of Systems - Review of Systems Review of systems:: unable to obtain Patient is pleasant but significantly demented. Laughs inappropriately and denies pains of any kind or shortness of air or other symptoms. Meds Home Medications Medication Instructions Recorded Confirmed Type memantine 10 mg tablet 10 mg PO BID 02/24/19 04/27/19 History rivastigmine 9.5 mg TD DAILY 02/24/19 04/27/19 History Cetirizine HCl 10 mg PO DAILY 04/26/19 04/27/19 History Ondansetron [Zofran 4mg ODT] 4 mg PO TID PRN 3 Days #12 04/26/19 Rx tab.rapdis Donepezil HCl [Aricept 10mg 10 mg PO HS 04/27/19 04/27/19 History tablet] Allergies Allergy/AdvReac Type Severity Reaction Status Date / Time No Known Allergies Allergy Verified 04/07/19 12:57 Exam Vital signs and Labs for Last 24 Hours: Temp Pulse Resp BP Pulse Ox 97.6 F 71 20 162/80 H 97 04/27/19 07:28 04/27/19 07:28 04/27/19 07:28 04/27/19 07:28 04/27/19 03:40 Laboratory Results - last 24 hr 04/26/19 13:35: Urine Color Yellow, Urine Appearance Clear, Urine pH 5.5, Ur Specific [place] >= 1.030, Urine Protein 1+, Urine Glucose (UA) Negative, Urine Ketones Negative, Urine Blood 3+, Urine Nitrate Negative, Urine Bilirubin Neg ative, Urine Urobilinogen 0.2, Ur Leukocyte Esterase Trace, Urine RBC 3-5, Urine WBC 10-20, Ur Squamous Epith Cells Occasional, Ur Transition Epith Cell 3-5, Amorphous Sediment 1+, Urine Bacteria None, Hyaline Casts Occasional 04/26/19 13:35: WBC 24.0 H*, RBC 5.18, Hgb 15.4, Hct 46.0, MCV 88.7, MCH 29.7, MCHC 33.5, RDW 13.7, Plt Count 257, MPV 8.7, Neut % (Auto) 94.7 H, Lymph % (Auto) 1.8 L, [place] % (Auto) 3.4, Eos % (Auto) 0.1, Baso % (Auto) 0.0 L, Neut # (Auto) 23.3 H, Lymph # (Auto) 0.4 L, [place] # (Auto) 0.9, Eos # (Auto) 0.0, Baso # (Auto) 0.0, Total Counted 100, Neutrophils % (Manual) 94 H, Lymphocytes % (Manual) 1 L, Monocytes % (Manual) 5, Platelet Estimate Normal, RBC Morphology Normal 04/26/19 13:35: Sodium 135 L, Potassium 4.1, Chloride 97 L, Carbon Dioxide 26, Anion Gap 16.1 H, BUN 17, Creatinine 0.90, Estimated Creat Clear 56, Estimated GFR 60, Est GFR ( Amer) 73, Glucose 173 H, Calcium 10.0, Total Bilirubin 0.6, AST 34, ALT 41, Alkaline Phosphatase 100, Total Protein 7.5, Albumin 4.4, Globulin 3.1, Albumin/Globulin Ratio 1.4, Amylase 110 04/26/19 13:35: Troponin I 0.15 H, Lipase 501 H 04/26/19 14:25: Lactate 4.1 H 04/26/19 18:50: Lactate 3.9 H 04/26/19 20:50: Lactate 2.0 I & O for Last 24 hours: Intake & Output 04/24/19 04/25/19 04/26/19 04/27/19 11:59 11:59 11:59 11:59 Intake Total 720 / 720 Balance 720 / 720 Weight 161 lb 3 oz - *Routine HEENT Exam Head: Present: normocephalic Eye: Present: EOMI, PERRL ENT: Present: mucous membranes moist - *Routine Neck Exam Present: supple. Absent: lymphadenopathy - *Routine Respiratory Exam Present: CTA bilaterally - *Routine Cardiovascular Exam Present: RRR - *Routine Abdominal Exam Present: soft, tenderness Comments: Normal tenderness in the right flank. - *Routine Extremities Exam Absent: cyanosis, clubbing, edema - *Routine Skin Exam Present: warm. Absent: rash - *Routine Neurological Exam Present: alert, oriented X3 Assessment and Plan (1) Enteritis Current visit: Yes Status: Acute Category: Medical Code(s): K52.9 - Noninfective gastroenteritis and colitis, unspecified (2) Gastroenteritis Current visit: Yes Status: Acute Category: Medical Code(s): K52.9 - Noninfective gastroenteritis and colitis, unspecified (3) Left lower lobe consolidation Current visit: Yes Status: Acute Category: Medical Code(s): J18.1 - Lobar pneumonia, unspecified organism - Assessment and plan all Dx Assessment and Plan for all problems:: Enteritis-agree with antibiotic therapy. Diarrhea PCR testing. Advance diet slowly. Chest x-ray because of left lower lobe consolidation. Remains on antibiotics. Sputum culture if possible.
--- NOTE | 2019-04-27 08:25 | Pharmacy Consult Notes ---
[facility] Pharmacy VTE Monitoring - Patient Demographics Admission date: 04/27/19 Report Date: 04/27/19 Time: 08:25 Allergies/Adverse Reactions: Patient Allergies No Known Allergies Allergy (Verified 04/07/19 12:57) Height: 1.68 m Weight: 73.113 kg Patient Problems: Current Active Problems Gastroenteritis (Acute) Sepsis (Acute) Enteritis (Acute) - VTE Risk Labs: VTE Related Lab Results Hgb 15.4 g/dL (12.2-16.2) 04/26/19 13:35 Hct 46.0 % (37.0-47.0) 04/26/19 13:35 Plt Count 257 K/mm3 (142-424) 04/26/19 13:35 BUN 17 mg/dl (7-17) 04/26/19 13:35 Creatinine 0.90 mg/dl (0.52-1.04) 04/26/19 13:35 Estimated Creat Clear 56 mL/min (50-200) 04/26/19 13:35 Was VTE Risk Assessment Performed: No VTE Score: 1 VTE Risk Level: Very Low Risk Clinical Trial Participant: No - Prophylaxis VTE Prophylaxis Ordered?: Yes Types of VTE Prophylaxis: TEDS Knee High Location of Applied Device: Refused
[2019-04-28 06:58] LABS: Albumin/Globulin Ratio 1.1 (1.1-1.8); Anion Gap 9.5 mEq/L (5-15); Bilirubin,Total 0.6 mg/dl (0.2-1.3); Globulin 2.8 g/dL (1.3-3.2); Total Protein,Serum 5.8 g/dl (6.3-8.2)
[2019-04-28 07:25] LABS: Basophils % 0.1 % (0.1-2.0); Eosinophils % 0.3 % (0.1-12.0); Hemoglobin 12.3 g/dL (12.2-16.2); Lymphocytes # 1.2 K/mm3 (0.7-4.5); Lymphocytes % 8.3 % (10-50); Mean Corpuscular HGB Conc 33.4 g/dL (31.8-35.4); Mean Corpuscular Volume 89.1 fl (81-99); Monocytes # 0.8 K/mm3 (0.1-1.0); Monocytes % 5.4 % (1.7-9.3); Neutrophils # 12.1 K/mm3 (1.8-7.8); Neutrophils % 85.9 % (37.0-80.0); Platelet Count 213 K/mm3 (142-424); Red Blood Count 4.15 M/mm3 (4.20-5.40); Red Cell Distribution Width 13.5 % (11.5-17.5)
[2019-04-28 07:44] LABS: Calcium 8.4 mg/dl (8.4-10.2)
[2019-04-28 10:39] LABS: Lymphocytes % 9 % (10-50); Monocytes % 5 % (2-9); Neutrophils % 86 % (42-76); RBC Morphology Normal; Total Cells Counted 100
--- NOTE | 2019-04-28 10:49 | Progress Note ---
Internal Medicine - PN: Subj *Date: 04/28/19 *Time: 08:15 Interval history: Patient did well overnight. Denies nausea, vomiting, diarrhea. Belly pain improving however she is hesitant to eat. Afebrile and hemodynamically stable. not at bedside this morning, difficulty obtaining history from patient given her word recall and stuttering through answers due to underlying dementia and history of cancer. Exam Vital signs and Labs for Last 24 Hours: Temp Pulse Resp BP Pulse Ox 99.0 F 75 18 143/80 H 97 04/28/19 08:00 04/28/19 08:00 04/28/19 08:00 04/28/19 08:00 04/28/19 08:00 Laboratory Results - last 24 hr 04/27/19 15:45: Stl Aeromonas (PCR) Not detected, Stl C. cayetanensis PCR Not detected, Stool Rotavirus (PCR) Not detected, Stl Adenov F 40/41 PCR Not detected, Stool Astrovirus (PCR) Not detected, Stool Campylobacter PCR Not detected, Stl C.difficile Tox PCR Not detected, Stool Cryptosporidium PCR Not detected, Stl E.coli Shiga Tox PCR Not detected, Stool E coli O157 PCR Not de tected, Stl Enterotoxigenic E PCR Not detected, Stool EPEC (PCR) Not detected, Stool EAEC (PCR) Not detected, Stl E. histolytica PCR Not detected, Stool Giardia Lamblia PCR Not detected, Stool Salmonella PCR Not detected, Stool Sapovirus (PCR) Not detected, Stl P. shigelloides PCR Not detected, Stl Shigella/EIEC PCR Not detected, St Y.enterocolitica PCR Not detected, Stool Vibrio (PCR) Not detected, Stl Vibrio cholerae PCR Not detected, Stl Norovirus GI/GII PCR Not detected 04/28/19 05:55: WBC 14.0 H D, RBC 4.15 L, Hgb 12.3, Hct 37.0, MCV 89.1, MCH 29.7, MCHC 33.4, RDW 13.5, Plt Count 213, MPV 9.0, Neut % (Auto) 85.9 H, Lymph % (Auto) 8.3 L, [place] % (Auto) 5.4, Eos % (Auto) 0.3, Baso % (Auto) 0.1, Neut # (Auto) 12.1 H, Lymph # (Auto) 1.2, [place] # (Auto) 0.8, Eos # (Auto) 0.0, Baso # (Auto) 0.0, Total Counted 100, Neutrophils % (Manual) 86 H, Lymphocytes % (Manual) 9 L, Monocytes % (Manual) 5, Platelet Estimate Normal, RBC Morphology Normal 04/28/19 05:55: Sodium 134 L, Potassium 3.5, Chloride 101, Carbon Dioxide 27, Anion Gap 9.5, BUN 8 D, Creatinine 0.80, Estimated Creat Clear 53, Estimated GFR 69, Est GFR ( Amer) 84, Glucose 92, Calcium 8.4 D, Total Bilirubin 0.6, AST 28, ALT 14 D, Alkaline Phosphatase 80, Total Protein 5.8 L, Albumin 3.0 L, Globulin 2.8, Albumin/Globulin Ratio 1.1 I & O for Last 24 hours: Intake & Output 04/25/19 04/26/19 04/27/19 04/28/19 23:59 23:59 23:59 23:59 Intake Total 340 / 340 1390 / 1390 340 / 340 Output Total 451 / 451 1800 / 1800 Balance 340 / 340 939 / 939 -1460 / -1460 Weight 70.023 kg 73.113 kg 74.021 kg Microbiology Reports for the Last 24 Hours: Microbiology 04/28/19 08:40 Sputum - Expectorated Sputum Gram Stain - Final 04/26/19 13:35 Urine,Clean Catch Urine Culture - Final Multiple organisms, suggests contamination. Narrative: - *Routine HEENT Exam Head: Present: normocephalic Eye: Present: EOMI, PERRL ENT: Present: mucous membranes moist - *Routine Neck Exam Present: supple. Absent: lymphadenopathy - *Routine Respiratory Exam Present: CTA bilaterally - *Routine Cardiovascular Exam Present: RRR - *Routine Abdominal Exam Present: soft, tenderness Comments: Normal tenderness in the right flank. - *Routine Extremities Exam Absent: cyanosis, clubbing, edema - *Routine Skin Exam Present: warm. Absent: rash - *Routine Neurological Exam Present: alert, difficult to assess orientation due to patient's expressive speech difficulty Assessment and Plan (1) Enteritis Current visit: Yes Status: Acute Category: Medical Code(s): K52.9 - Noninfective gastroenteritis and colitis, unspecified (2) Gastroenteritis Current visit: Yes Status: Acute Category: Medical Code(s): K52.9 - Noninfective gastroenteritis and colitis, unspecified (3) Left lower lobe consolidation Current visit: Yes Status: Acute Category: Medical Code(s): J18.1 - Lobar pneumonia, unspecified organism - Assessment and plan all Dx Assessment and Plan for all problems:: 78-year-old female with enteritis and concern for left lower lobe pneumonia. Continue antibiotics as prescribed. Tolerating diet advancement. Remains afebrile and hemodynamically stable. If continues to do well over the next 24 hours, will advance to oral antibiotics and plan for discharge tomorrow
[2019-04-29 07:04] LABS: Basophils % 0.1 % (0.1-2.0); Eosinophils # 0.1 K/mm3 (0.0-0.4); Eosinophils % 0.7 % (0.1-12.0); Hematocrit 36.8 % (37.0-47.0); Hemoglobin 12.3 g/dL (12.2-16.2); Lymphocytes % 9.8 % (10-50); Mean Corpuscular HGB Conc 33.6 g/dL (31.8-35.4); Mean Corpuscular Volume 87.6 fl (81-99); Mean Platelet Volume 8.5 fl (7.4-10.4); Monocytes # 0.6 K/mm3 (0.1-1.0); Monocytes % 5.5 % (1.7-9.3); Neutrophils # 8.7 K/mm3 (1.8-7.8); Neutrophils % 83.9 % (37.0-80.0); Platelet Count 204 K/mm3 (142-424); Red Blood Count 4.19 M/mm3 (4.20-5.40); Red Cell Distribution Width 13.4 % (11.5-17.5); White Blood Count 10.4 K/mm3 (4.8-10.8)
[2019-04-29 07:15] LABS: Anion Gap 10.5 mEq/L (5-15); Calcium 8.3 mg/dl (8.4-10.2)
--- NOTE | 2019-04-29 08:29 | Discharge Summary ---
General - General Admission date:: 04/26/19 Discharge date: 04/29/19 HPI HPI: 78-year-old white female who is in robust physical health but unfortunately afflicted with moderate dementia, who presented to the emergency department in the afternoon hours of April 25 with vomiting and diarrhea and feelings of abdominal pain. Work-up revealed minimally elevated white count, otherwise labs were okay, but CT scan showed evidence of duodenitis and enteritis. Given patient's poor p.o. intake she was admitted to hospital for further evaluation and further diagnostic testing and treatment of her enteritis. Hospital Course Hospital Course: Patient was admitted. IV antibiotics were started. Patient's diet was restricted and then slowly liberalized. She felt good and had a couple of episodes of diarrhea. These were serologically tested for enteric pathogens and C. difficile and were negative. Patient's abdominal symptoms improved nicely. No further vomiting. She was found to have infiltrate on chest x-ray present on admission, and Levaquin was continued for community-acquired pneumonia. This morning she was doing well. She will be discharged home. 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 She will continue her other medications and antibiotics. I will see her in my office in [place] in 6 days. Given her significant memory loss and need for increasing monitoring when her is forming I recommended home health evaluation for home safety, PT/OT/medication management. Please note that I performed a [id number]-wuib evaluation today to evaluate for this need. Objective Vital signs: Temp Pulse Resp BP Pulse Ox 98.3 F 67 20 145/77 H 94 L 04/29/19 04:27 04/29/19 04:27 04/29/19 04:27 04/29/19 04:27 04/29/19 04:27 Narrative: Pleasant. Alert. Disoriented except to person and place. Significant inappropriate giggling and inappropriate emotional response to conversation. Lungs have good air movement, minimal rhonchi in the right lower lung field. Abdomen soft, nontender, normal bowel sounds. Heart rate regular. No JVD, ENT exam clear. Neurologic exam as noted above, otherwise no focal power deficits. No edema or clubbing, no rash. Results Labs on day of discharge: Labs from last 24 hours 04/29/19 04/29/19 04/28/19 06:22 06:22 05:55 WBC 10.4 D RBC 4.19 L Hgb 12.3 Hct 36.8 L MCV 87.6 MCH 29.4 MCHC 33.6 RDW 13.4 Plt Count 204 MPV 8.5 Neut % (Auto) 83.9 H Lymph % (Auto) 9.8 L Ada % (Auto) 5.5 Eos % (Auto) 0.7 Baso % (Auto) 0.1 Neut # (Auto) 8.7 H Lymph # (Auto) 1.0 Ada # (Auto) 0.6 Eos # (Auto) 0.1 Baso # (Auto) 0.0 Total Counted 100 Neutrophils % (Manual) 86 H Lymphocytes % (Manual) 9 L Monocytes % (Manual) 5 Platelet Estimate Normal RBC Morphology Normal Sodium 134 L Potassium 3.5 Chloride 102 Carbon Dioxide 25 Anion Gap 10.5 BUN 8 Creatinine 0.80 Estimated Creat Clear 53 Estimated GFR 69 Est GFR ( Amer) 84 Glucose 94 Calcium 8.3 L Preliminary micro results at discharge 04/28/19 08:40 Sputum Culture - Preliminary Sputum - Expectorated Sputum 04/26/19 14:15 Blood Culture - Preliminary Blood NO GROWTH AFTER 48 HOURS 04/26/19 14:15 Blood Culture - Preliminary Blood NO GROWTH AFTER 48 HOURS DS: Diagnosis - Discharge Diagnosis (1) Enteritis Status: Acute (2) Gastroenteritis Status: Acute (3) Left lower lobe consolidation Status: Acute (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 Status: Acute (5) Pseudobulbar affect Status: Acute Discharge Plan - Patient Discharge Instructions ACTIVITY: Continue current activity DIET: continue same diet Additional Instructions: Care management consultation for home health evaluation as noted in discharge plan - Follow up Plan Follow up with: Laith Agee MD [Primary Care Provider] - 05/05/19 Disposition: Home Health Service Home Medications: Home Medications Medication Instructions Recorded Confirmed Type memantine 10 mg tablet 10 mg PO BID 02/24/19 04/27/19 History Cetirizine HCl 10 mg PO DAILY 04/26/19 04/27/19 History Ondansetron [Zofran 4mg ODT] 4 mg PO TID PRN 3 Days #12 04/26/19 Rx tab.rapdis Donepezil HCl [Aricept 10mg 10 mg PO HS 04/27/19 04/27/19 History tablet] levoFLOXacin [Levaquin 500mg 500 mg PO DAILY #5 tab 04/29/19 Rx tab] metroNIDAZOLE [Flagyl 250mg 250 mg PO TID #15 tab 04/29/19 Rx Tablet] Prescriptions/Medication Reconciliation: New Ondansetron [Zofran 4mg ODT] 4 mg PO TID PRN 3 Days #12 tab.rapdis PRN Reason: Nausea metroNIDAZOLE [Flagyl 250mg Tablet] 250 mg PO TID #15 tab levoFLOXacin [Levaquin 500mg tab] 500 mg PO DAILY #5 tab Continued memantine 10 mg tablet 10 mg PO BID Cetirizine HCl 10 mg PO DAILY Donepezil HCl [Aricept 10mg tablet] 10 mg PO HS - Problem Reconciliation Problems Reviewed?: Yes
--- NOTE | 2019-05-01 07:58 | Electrocardiograph Report ---
APPROVED REPORT Exam: Resting ECG HR:75 bpm ECG Measurements Heart Rate 75 AXES NJ 114 P 66 QRSd 74 QRS 43 QT 376 T24 QTc 419 <Conclusion> Normal sinus rhythm Left atrial abnormality Poor R wave progression, unchanged from prior Abnormal ECG Electronically signed by : Laith Agee, 05/01/2019 07:57:19
== END 2019-04-29 11:45 | disposition home or self-care (01) | DRG 391 ==
LOC: 2ND 13:02 → ER 13:02 → OBSVTOIN 16:09 → 2ND 16:10
PROVIDERS: ADMIT Internal Medicine Adolescent Medicine; ATTEND Internal Medicine Adolescent Medicine
CPT/HCPCS: 36415; 71010; 71020; 71045; 71046; 74177; 80048; 80053; 81001; 82150; 83605; 83690; 84484; 85007; 85025; 87040; 87070; 87086; 87205; 87506; 93005; 96365; 96367; 96375; 99285; J1956; Q9967

== ENCOUNTER → 2019-05-12 12:47 | Outpatient (CLI) | payer MEDICARE, OTHER, SELFPAY ==
--- NOTE | 2019-05-12 12:53 | XR_ITS ---
PROCEDURE: XR WRIST LT MIN 3V CLINICAL INDICATION: sp ORIF LT wrist, dos 03/02/2019 COMPARISON: WRISTCMRT XR wrist RT min 3V from 06/24/2017 XR WRIST LT MIN 3V from 02/22/2019 XR WRIST LT MIN 3V from 03/17/2019 XR WRIST LT MIN 3V from 04/07/2019 FINDINGS: Metallic fixation plate with multiple reduction screws is again noted in the distal radius with osteoblastic activity of healed fracture of distal radius. There is no acute fracture or dislocation. An ununited displaced fracture of the ulnar styloid process is noted. 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 There is diffuse demineralization. IMPRESSION: Anatomical positioning with healed fracture distal radius and ununited displaced ulnar styloid fracture. Dictated by: Hugh Wilkerson 05/12/2019 13:11 Electronically signed by Hugh Wilkerson in [place] 05/12/2019 13:11
== END ==
PROVIDERS: PCP Internal Medicine Adolescent Medicine; Visit Provider Orthopaedic Surgery
DX: Z09 Encounter for follow-up examination after completed treatment for conditions other than malignant neoplasm (principal); S52.532D Colles' fracture of left radius, subsequent encounter for closed fracture with routine healing; S52.612D Displaced fracture of left ulna styloid process, subsequent encounter for closed fracture with routine healing
CPT/HCPCS: 73110

== ENCOUNTER 2019-05-22 13:39 | Emergency (ER) | payer MEDICARE, OTHER, SELFPAY ==
[2019-05-22 13:39] VITALS: BP 159/106; PULSE 103; RESP 20; TEMP 36.6; O2SAT 91; BMI 24.3
--- NOTE | 2019-05-22 13:47 | ECG_ITS ---
APPROVED REPORT Exam: Resting ECG HR:93 bpm ECG Measurements Heart Rate 93 AXES OK 116 P 70 QRSd 86 QRS 73 QT 376 T 7 QTc 467 <Conclusion> Normal sinus rhythm Possible Left atrial enlargement RSR' or QR pattern in V1 suggests right ventricular conduction delay T wave abnormality, consider anterior ischemia Abnormal ECG Electronically signed by : Scott Olivares, 05/22/2019 16:09:19
[2019-05-22 13:50] VITALS: BMI 24.3
--- NOTE | 2019-05-22 13:51 | XR_ITS ---
PROCEDURE: XR CHEST PORTABLE CLINICAL HISTORY: shortness of breath COMPARISON: CHESTW CT chest w con from 02/13/2017 XR CHEST PORTABLE from 04/26/2019 XR CHEST 2V from 04/27/2019 FINDINGS: There is cardiomegaly without failure. Infiltrate is once again noted in the left mid lower lung zone. This does not appear significantly changed. No acute bony abnormalities. IMPRESSION: Cardiomegaly with no change in the left lower lobe pneumonia Dictated by: Ethan Murguia MD 05/22/2019 14:34 Electronically signed by Ethan Murguia MD in [place] 05/22/2019 14:34
[2019-05-22 14:05] LABS: Appearance,Urine CLEAR (Clear); Bilirubin,Urine Negative (Negative); Blood, Urine Negative (Negative); Color,Urine YELLOW (Yellow); Glucose,Urine (UA) Negative (Negative); Ketones,Urine Negative (Negative); Leukocyte Esterase,Urine Negative (Negative); Microscopic, Urine URINE MICROSCOPIC (MICROSCOPIC); Nitrate,Urine Negative (Negative); Protein,Urine Negative (Negative); Specific Gravity, Urine 1.025 (1.005-1.030); Urobilinogen,Urine 0.2 EU/dl (0.2)
--- NOTE | 2019-05-22 14:16 | HMH.EDGENADL ---
ED Disposition Clinical Impression: Pulmonary embolism Qualifiers: Pulmonary embolism type: unspecified Chronicity: acute Acute cor pulmonale presence: with acute cor pulmonale Qualified Code(s): I26.09 - Other pulmonary embolism with acute cor pulmonale Disposition: Xfer Short-Term Hosp Condition on Discharge: Fair Referrals: Provider,Referral, [Primary Care Provider] - Forms: Transfer Record - ED - Critical Care Critical Care Time: No Attestation: On 05/22/19, the high probability of a clinically significant, sudden or life threatening deterioration of the following system(s) required my full and direct attention, intervention and personal management. The time I documented below is in addition to time spent performing reported procedures but includes the following listed in this critical care notation. Medical Decision Making - Mason Inquiry Pt receiving controlled substance: No Mason was queried for this patient: No Vital Signs: 05/22/19 13:39 05/22/19 14:25 05/22/19 15:01 Temperature 97.8 F Temperature Source Oral Pulse Rate [Right Radial] 103 H 86 Respiratory Rate 20 20 Blood Pressure [Right Arm] 159/106 H 152/102 H Blood Pressure Mean [Right Arm] 123 118 Blood Pressure Source [Right Arm] Automatic Cuff Automatic Cuff Blood Pressure Position [Right Arm] Sitting Supine 02 Sat by Pulse Oximetry 91 L 100 100 Oxygen Delivery Method Room Air Nasal Cannula Nasal Cannula Oxygen Flow Rate (LPM) 2 2 05/22/19 17:00 Temperature Temperature Source Pulse Rate [Right Radial] 72 Respiratory Rate 28 H Blood Pressure [Right Arm] 156/59 H Blood Pressure Mean [Right Arm] 91 Blood Pressure Source [Right Arm] Blood Pressure Position [Right Arm] 02 Sat by Pulse Oximetry 97 Oxygen Delivery Method Room Air Oxygen Flow Rate (LPM) 3 - Lab Data Lab Results 05/22/19 13:51: Specimen Source R radial, O2 % 2lpm, ABG pH 7.49 H, ABG pCO2 35.3, ABG pO2 98.1, ABG HCO3 26.4 H, ABG Total CO2 27.4 H, ABG O2 Saturation 98, ABG Base Excess 3.0 H, Ethan Test Acceptable 05/22/19 13:56: Urine Color Yellow, Urine Appearance Clear, Urine pH 6.0, Ur Specific [place] 1.025, Urine Protein Negative, Urine Glucose (UA) Negative, Urine Ketones Negative, Urine Blood Negative, Urine Nitrate Negative, Urine Bilirubin Negative, Urine Urobilinogen 0.2, Ur Leukocyte Esterase Negative, Urine RBC 3-5, Urine WBC 5-10, Ur Squamous Epith Cells Occasional, Urine Bacteria None, Urine Mucus Trace 05/22/19 14:10: WBC 8.5, RBC 4.72, Hgb 14.0, Hct 41.9, MCV 88.7, MCH 29.6, MCHC 33.3, RDW 14.3, Plt Count 224, MPV 9.5, Neut % (Auto) 74.0, Lymph % (Auto) 18.5, [place] % (Auto) 6.4, Eos % (Auto) 0.9, Baso % (Auto) 0.2, Neut # (Auto) 6.3, Lymph # (Auto) 1.6, [place] # (Auto) 0.5, Eos # (Auto) 0.1, Baso # (Auto) 0.0 05/22/19 14:10: Sodium 134 L, Potassium 4.2, Chloride 100, Carbon Dioxide 27, Anion Gap 11.2, BUN 20 H, Creatinine 1.10 H, Estimated Creat Clear 48, Estimated GFR 48 L, Est GFR ( Amer) 58 L, Glucose 108 H, Calcium 9.3, Total Bilirubin 0.4, AST 32, ALT 30, Alkaline Phosphatase 96, Troponin I 0.01, Total Protein 7.1, Albumin 3.9, Globulin 3.2, Albumin/Globulin Ratio 1.2 05/22/19 14:10: Lactate 2.1 05/22/19 14:10: Influenza Type A Ag Negative, Influenza Type B Ag Negative 05/22/19 14:10: Group A Strep Rapid Negative Result diagrams: 05/22/19 14:10 05/22/19 14:10 Orders (Tests/Meds): ED MEDICATIONS Generic Name Dose Route Start Last Admin Trade Name Freq PRN Reason Stop Dose Admin Heparin Sodium/Dextrose 500 mls @ 24 mls/hr 05/22/19 16:00 05/22/19 16:34 Heparin 25,000 Units In D5w 500ml Premix IV 06/21/19 15:59 24 mls/hr .[id number] RAJESH Administration 1,200 UNITS/HR Miscellaneous 1 each 05/22/19 16:00 Heparin Drip Consult Request * 06/21/19 15:59 CONSULT PHARMACY RAJESH Sodium Chloride 3 ml 05/22/19 13:52 Sodium Chloride 3% 15ml Neb IH 06/21/19 13:51 ONCE PRN INDUCE SPUTUM COLLECTION Disconti
[2019-05-22 14:19] LABS: Mucus,Urine Trace /lpf; Squamous Epithelial Cell,Urine Occasional #/hpf (0-5)
[2019-05-22 14:25] VITALS: BP 152/102; PULSE 86; RESP 20; O2SAT 100
[2019-05-22 14:29] LABS: ABG HCO3 26.4 mmhg (22.0-26.0); ABG Oxygen Saturation 98 % (90-100); ABG PCO2 35.3 mmhg (35.0-45.0); ABG PH 7.49 mmol/L (7.35-7.45); ABG PO2 98.1 mmhg (80-100); ABG TCO2 27.4 mmhg (23-27); Oxygen 2LPM %
[2019-05-22 14:30] LABS: Allen's Test ACCEPTABLE; Source R RADIAL
[2019-05-22 14:31] LABS: Basophils % 0.2 % (0.1-2.0); Eosinophils # 0.1 K/mm3 (0.0-0.4); Eosinophils % 0.9 % (0.1-12.0); Hematocrit 41.9 % (37.0-47.0); Lymphocytes # 1.6 K/mm3 (0.7-4.5); Lymphocytes % 18.5 % (10-50); Mean Corpuscular HGB Conc 33.3 g/dL (31.8-35.4); Mean Corpuscular Hemoglobin 29.6 pg (27.0-31.2); Mean Corpuscular Volume 88.7 fl (81-99); Mean Platelet Volume 9.5 fl (7.4-10.4); Monocytes # 0.5 K/mm3 (0.1-1.0); Monocytes % 6.4 % (1.7-9.3); Neutrophils # 6.3 K/mm3 (1.8-7.8); Platelet Count 224 K/mm3 (142-424); Red Blood Count 4.72 M/mm3 (4.20-5.40); Red Cell Distribution Width 14.3 % (11.5-17.5); White Blood Count 8.5 K/mm3 (4.8-10.8)
[2019-05-22 14:39] LABS: Alanine Aminotransferase 30 U/L (12-78); Albumin Level 3.9 g/dl (3.5-5.0); Albumin/Globulin Ratio 1.2 (1.1-1.8); Alkaline Phosphatase 96 U/L (38-126); Anion Gap 11.2 mEq/L (5-15); Aspartate Amino Transferase 32 U/L (14-36); Bilirubin,Total 0.4 mg/dl (0.2-1.3); Blood Urea Nitrogen 20 mg/dl (7-17); Calcium 9.3 mg/dl (8.4-10.2); Carbon Dioxide 27 mmol/L (22.0-30.0); Chloride 100 mmol/L (98-107); Creatinine Clearance Estimated 48 mL/min (50-200); Estimated Glomerular Filt Rate 48 ml/min (>60); GFR (African American) 58 ML/MIN (>60); Globulin 3.2 g/dL (1.3-3.2); Glucose 108 mg/dl (74-100); Potassium 4.2 mmoL/L (3.5-5.1); Sodium 134 mmol/L (136-145); Total Protein,Serum 7.1 g/dl (6.3-8.2)
[2019-05-22 14:40] LABS: Lactic Acid 2.1 mmol/L (0.7-2.1)
--- NOTE | 2019-05-22 14:40 | CT_ITS ---
PROCEDURE: CT ANGIO CHEST CLINCIAL INDICATION: hypoxia, sob Cough, shortness of air, hypoxia, recent pneumonia COMPARISON: No exams were available for comparison TECHNIQUE: IV Contrast: 70ML OPTIRAY 350 Axial images obtained with sagittal and coronal reformats. All CT scans at the facility use one or more dose reduction, viz: automated exposure control, ma/kV adjustment per patient size (including targeted exams where dose is matched to indication, i.e. head), or iterative reconstruction technique. FINDINGS: HEART AND MEDIASTINAL STRUCTURES: There is extensive acute bilateral pulmonary emboli with thrombus present in both right and left upper and lower lobe pulmonary arteries. Most extensive amount of thrombus is in the distal aspect of the right main pulmonary artery extending into the upper lobe branches and lower lobe branches. Similar finding is also present on the left but less extensive. There is mild cardiomegaly. There is mild bowing of the of leftward bowing of the interventricular septum with some reflux of contrast into mildly prominent inferior vena cava consistent with RV strain LUNGS AND PLEURAL SPACES: There are scattered small parenchymal opacities in both upper lobes the largest in the right upper lobe at approximately 4 mm. These are nonspecific and could be inflammatory/infectious or neoplastic. Atelectatic changes are present in the lower lobes. No effusions are evident. Patchy infiltrate is present in the left upper and left lower lobe BONY STRUCTURES: Degenerative changes thoracic spine UPPER ABDOMEN: Unremarkable. ADDITIONAL FINDINGS: No other significant abnormalities. IMPRESSION: Extensive bilateral pulmonary emboli with suggestion of right ventricular strain Bilateral lower lobe atelectatic changes with patchy areas of infiltrate in the left upper left lower lobe along with scattered small parenchymal opacities in both upper lobes. Consider follow-up to confirm stability Dictated by: Ethan Murguia MD 05/22/2019 15:56 Electronically signed by Ethan Murguia MD in [place] 05/22/2019 15:56
[2019-05-22 14:42] LABS: Strep Scrn Group A (Rapid) Negative (Negative)
[2019-05-22 14:53] LABS: Troponin I 0.01 ng/ml (0.00-0.034)
[2019-05-22 15:01] VITALS: O2SAT 100
--- NOTE | 2019-05-22 16:20 | PC.NURSE ---
SPEAKING WITH DR MARTINEZ AT THIS TIME. 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
--- NOTE | 2019-05-22 16:35 | PC.NURSE ---
[facility] IS ON STANDBY AND WAITING FOR US TO RECEIVE A ROOM ASSIGNMENT FROM [facility].
--- NOTE | 2019-05-22 16:35 | PC.NURSE ---
Dr Magaña spoke with Dr Reyes.
--- NOTE | 2019-05-22 16:36 | PC.NURSE ---
[facility] called for transfer. awaiting call back from Dr Singer.
--- NOTE | 2019-05-22 16:48 | HMH.PHAINT ---
MD ALREADY DOSED HEPARIN DRIP/BOLUS AND ADMINISTERED. PATIENT WILL BE TRANSFERRED.
[2019-05-22 17:00] VITALS: BP 156/59; PULSE 72; RESP 28; O2SAT 97
--- NOTE | 2019-05-22 17:00 | PC.NURSE ---
Dr Magaña spoke with Dr Singer at [facility], waiting for bed placement
--- NOTE | 2019-05-22 17:11 | PC.NURSE ---
received bed placement from [facility]. pt to be admitted to [facility] floor 3 [facility]. attempted to call report at this time. nurse unavailable. awaiting return call.
[2019-05-22 18:05] LABS: Reflex Lactic Add Lactic Reflex
--- NOTE | 2019-05-22 18:09 | PC.NURSE ---
air evac at bedside for transport to [facility]. report given to esther mata air evac RN.
[2019-05-22 18:25] VITALS: BP 174/89; PULSE 98; RESP 24; TEMP 37.1; O2SAT 97
[2019-05-22 18:25] LABS: Lactic Acid Follow Up (RFLX 1) 2.3 mmol/L (0.7-2.1)
[2019-05-22 18:33] LABS: Troponin I 0.01 ng/ml (0.00-0.034)
== END 2019-05-22 18:25 | disposition short-term general hospital (02) ==
PROVIDERS: Emergency Provider Emergency Medicine
DX: I26.09 Other pulmonary embolism with acute cor pulmonale (principal); G30.9 Alzheimer's disease, unspecified; Z79.899 Other long term (current) drug therapy
CPT/HCPCS: 36415; 71045; 71275; 80053; 81001; 82803; 83605; 84484; 85025; 87040; 87275; 87276; 87430; 93005; 96365; 96367; 96375; 99285; Q9967

== ENCOUNTER → 2019-08-11 13:16 | Outpatient (CLI) | payer MEDICARE, OTHER, SELFPAY ==
[2019-08-11 13:42] LABS: Basophils % 0.1 % (0.1-2.0); Eosinophils # 0.1 K/mm3 (0.0-0.4); Eosinophils % 0.8 % (0.1-12.0); Hematocrit 39.2 % (37.0-47.0); Hemoglobin 13.4 g/dL (12.2-16.2); Lymphocytes # 1.8 K/mm3 (0.7-4.5); Lymphocytes % 24.1 % (10-50); Mean Corpuscular HGB Conc 34.1 g/dL (31.8-35.4); Mean Corpuscular Hemoglobin 30.4 pg (27.0-31.2); Mean Platelet Volume 8.6 fl (7.4-10.4); Monocytes # 0.4 K/mm3 (0.1-1.0); Monocytes % 5.6 % (1.7-9.3); Neutrophils # 5.2 K/mm3 (1.8-7.8); Neutrophils % 69.4 % (37.0-80.0); Platelet Count 271 K/mm3 (142-424); Red Blood Count 4.41 M/mm3 (4.20-5.40); Red Cell Distribution Width 13.5 % (11.5-17.5); White Blood Count 7.5 K/mm3 (4.8-10.8)
[2019-08-11 13:46] LABS: Chloride 104 mmol/L (98-107); Potassium 4.2 mmoL/L (3.5-5.1); Sodium 140 mmol/L (136-145)
[2019-08-11 13:48] LABS: Blood Urea Nitrogen 23 mg/dl (7-17); Estimated Glomerular Filt Rate 48 ml/min (>60); GFR (African American) 58 ML/MIN (>60)
[2019-08-11 13:49] LABS: Alanine Aminotransferase 19 U/L (12-78); Albumin Level 3.9 g/dl (3.5-5.0); Albumin/Globulin Ratio 1.3 (1.1-1.8); Alkaline Phosphatase 99 U/L (38-126); Anion Gap 12.2 mEq/L (5-15); Aspartate Amino Transferase 25 U/L (14-36); Bilirubin,Total 0.5 mg/dl (0.2-1.3); Calcium 9.2 mg/dl (8.4-10.2); Carbon Dioxide 28 mmol/L (22.0-30.0); Chol/HDL Ratio 2.6 (1-3.5); Cholesterol 189 mg/dl (140-200); Glucose 126 mg/dl (74-100); HDL Cholesterol 72 mg/dl (40-60); Total Protein,Serum 6.9 g/dl (6.3-8.2); Triglycerides 214 mg/dl (30-150); VLDL Cholesterol 43 mg/dL (0-40)
[2019-08-11 14:03] LABS: Direct LDL Cholesterol 94.41 mg/dL (100-129)
[2019-08-11 14:23] LABS: Thyroid Stimulating Hormone 1.78 uIU/mL (0.465-4.68)
--- NOTE | 2019-08-11 14:26 | MR_ITS ---
PROCEDURE: MR HEAD/BRAIN WO/W CON CLINICAL INDICATION: EMBOLIC CVA Memory loss, prior embolic infarct COMPARISON: BRAINWO MR head/brain wo con from 11/06/2017 TECHNIQUE: Routine multiplanar multi echo sequences are performed without and with gadolinium enhancement. FINDINGS: No evidence of acute infarction. No midline shift, mass effect, intracranial hemorrhage, or hydrocephalus. The cerebellopontine angles, cerebellum, and brainstem have an unremarkable appearance. There is mild generalized atrophy with periventricular T2 white matter hyperintensities consistent with ischemic gliotic change from microvascular disease. There is no evidence of acute infarction with no evidence of restricted diffusion. There is a small subdural enhancing lesion in the left sylvian region once again noted measuring approximately 10 x 8 mm the not significantly changed consistent with a small meningioma. No other enhancing lesions are evident. The ventricles are slightly more prominent compared to the previous study however this may be due to slight increase in atrophy with brain volume loss. No mastoid effusion or sinus air-fluid level. IMPRESSION: Chronic changes, no acute intracranial findings No change in the small meningioma in the left sylvian region Dictated by: Ethan Murguia MD 08/12/2019 13:11 Electronically signed by Ethan Murguia MD in [place] 08/12/2019 13:11
[2019-08-13 11:34] LABS: Vitamin B12 374 pg/mL (232-1245)
== END ==
PROVIDERS: Visit Provider Specialist
DX: I63.9 Cerebral infarction, unspecified (principal); R05 Cough; R13.10 Dysphagia, unspecified; R41.3 Other amnesia; R47.01 Aphasia; R47.1 Dysarthria and anarthria
CPT/HCPCS: 36415; 70553; 80053; 80061; 82607; 84443; 85025; A9576

== ENCOUNTER → 2019-08-13 09:13 | Outpatient (CLI) | payer MEDICARE, OTHER, SELFPAY ==
--- NOTE | 2019-08-13 09:16 | CA_ITS ---
APPROVED REPORT Bilateral Lower Extremity Venous Study for DVT. Occupational Health Coordinator: JEANMARIE CuevasT Indications Lower Extremity Edema: Bilateral Pulmonary Embolism Shortness of breath bilateral LE edema Risk Factors Prior Pulmonary Embolism Past History Pulmonary Embolism Medications Pt on Eliqus Vein Imaging CFV (R): compressive, spontaneous, phasic, augmentation FEM (R): compressive, spontaneous, phasic, augmentation POP (R): compressive, spontaneous, phasic, augmentation PTV (R): Compressible GSV (R): Compressible Peroneals (R):Compressible GAS (R): Compressible CFV (L): compressive, spontaneous, phasic, augmentation FEM (L): compressive, spontaneous, phasic, augmentation POP (L): compressive, spontaneous, phasic, augmentation PTV (L): Compressible GSV (L): Partially Compressible Peroneals (L):Compressible GAS (L): Compressible Findings Study suggests no evidence of DVT of the bilateral lower extremities. Study suggests no evidence of SVT of the bilateral lower extremities. Conclusion No evidence of DVT or superficial thrombophlebitis in the veins scanned of the right lower extremity. No evidence of DVT or superficial thrombophlebitis in the veins scanned of the left lower extremity. Electronically signed by : Ethan Murguia MD 08/14/2019 11:39:31
--- NOTE | 2019-08-13 12:45 | FL_ITS ---
PROCEDURE: FL BARIUM SWALLOW MODIFIED CLINICAL INDICATION: difficulty swallowing COMPARISON: No exams were available for comparison TECHNIQUE: In the upright position the patient was observed to swallow barium in both the AP and lateral view. The cervical esophagus was examined under fluoroscopy with images obtained. The patient was then placed prone in the right anterior oblique position and was observed to swallow barium with Valsalva technique . FLUOROSCOPY TIME: 6 minutes FINDINGS: There was minimal aspiration with thin liquids. No cough reflex. There was mild delay in initiation of the swallowing mechanism. There was some residual with pudding he IMPRESSION: Mild silent aspiration with thin liquids Dictated by: Ethan Murguia MD 08/19/2019 10:06 Electronically signed by Ethan Murguia MD in [place] 08/19/2019 10:06
--- NOTE | 2019-08-13 15:20 | HMH.SLMBS2 ---
Speech & Language Evaluation Speech/Language Mod Barium Swallow Start: 08/13/19 14:19 Freq: once Status: Complete Protocol: Document 08/13/19 14:19 SHANAE (Rec: 08/13/19 15:20 SHANAE [id number]) General Information General Current Food Consistancy Regular,Thin Liquids Dentition Good Dentition Oxygen Status Room Air Facial Symmetry Symmetrical Ability to Follow Directions Fair Communication Ability Severe Impairment MBS Recommendations Diet Dietary Recommendations Regular,Thin Liquids Treatment/Strategies Treatment Recommendation Resistive Sucking Exer.,Base of Tongue Exercises,Compens. Strategy Educat.,Vocal Cord Adduction Exer Strategy/Precaution Recommend Sitting Upright (90 deg),Chin Tuck,Small Bites and Sips, Alternate Liquids/Solids Referrals/Other Recommended Referrals ENT Consult Mod Barium Swallow Impressions Summary and Impressions Oral Phase Impression No Impairment (WFL) Oral Phase Summary Ms. Lilly was given the following consistencies: thins via spoon, open cup, and straw, nectar, pudding, pureed , mechanical soft, regular, and pill with thin wash. No oral phase impairments noted at this time. Pharyngeal Phase Impression Mild Impairment Pharyngeal Phase Summary Ms. Lilly did exhibit flash penetration with thin liquids via spoon, improved with chin tuck. She exhibited silent aspiration with thin liquids via straw. With pudding consistency, minimal residue was noted but cleared with a thin wash via open cup. It was noted that Ms. Lilly had a line of mucus stretching from the base of the epiglottis to the point where the epiglottis meets the larynx and epiglottis. It is recommended that Ms. Lilly be referred to ENT. Speech/Language MBS Assessment/Goals/Plan Assessment Date of Evaluation: 08/13/19 Evaluation Type Initial Certification Assessment/Problems Dysphagia Does Patient Qualify for Service Yes Qualify/Failure Comment
== END ==
PROVIDERS: PCP Internal Medicine Adolescent Medicine; Visit Provider Internal Medicine Cardiovascular Disease
DX: I10 Essential (primary) hypertension (principal); I26.99 Other pulmonary embolism without acute cor pulmonale; R06.00 Dyspnea, unspecified; R05 Cough; R13.10 Dysphagia, unspecified; R41.3 Other amnesia; R47.01 Aphasia; R47.1 Dysarthria and anarthria; R60.0 Localized edema
CPT/HCPCS: 70371; 92611; 93306; 93970

== ENCOUNTER → 2020-01-28 08:17 | Outpatient (CLI) | payer MEDICARE, OTHER, SELFPAY ==
[2020-01-28 08:42] LABS: Chloride 102 mmol/L (98-107)
[2020-01-28 08:43] LABS: Potassium 4.6 mmoL/L (3.5-5.1); Sodium 136 mmol/L (136-145)
[2020-01-28 08:45] LABS: Blood Urea Nitrogen 21 mg/dl (7-17); Estimated Glomerular Filt Rate 39 ml/min (>60); GFR (African American) 48 ML/MIN (>60)
[2020-01-28 08:46] LABS: Anion Gap 8.6 mEq/L (5-15); Calcium 9.6 mg/dl (8.4-10.2); Carbon Dioxide 30 mmol/L (22.0-30.0); Glucose 103 mg/dl (74-100)
== END ==
PROVIDERS: Visit Provider Internal Medicine Cardiovascular Disease
DX: F02.80 Dementia in other diseases classified elsewhere, unspecified severity, without behavioral disturbance, psychotic disturbance, mood disturbance, and anxiety (principal); G30.9 Alzheimer's disease, unspecified; I10 Essential (primary) hypertension; R60.9 Edema, unspecified
CPT/HCPCS: 36415; 80048

== ENCOUNTER → 2020-03-03 14:43 | Outpatient (CLI) | payer MEDICARE, OTHER, SELFPAY ==
[2020-03-03 17:13] LABS: Alanine Aminotransferase 22 U/L (12-78); Albumin Level 4.7 g/dl (3.5-5.0); Albumin/Globulin Ratio 1.7 (1.1-1.8); Alkaline Phosphatase 111 U/L (38-126); Anion Gap 16.1 mEq/L (5-15); Aspartate Amino Transferase 30 U/L (14-36); Bilirubin,Total 0.4 mg/dl (0.2-1.3); Blood Urea Nitrogen 27 mg/dl (7-17); Calcium 10.1 mg/dl (8.4-10.2); Carbon Dioxide 28 mmol/L (22.0-30.0); Chloride 100 mmol/L (98-107); Estimated Glomerular Filt Rate 48 ml/min (>60); GFR (African American) 58 ML/MIN (>60); Globulin 2.8 g/dL (1.3-3.2); Glucose 97 mg/dl (74-100); Potassium 5.1 mmoL/L (3.5-5.1); Sodium 139 mmol/L (136-145); Total Protein,Serum 7.5 g/dl (6.3-8.2)
[2020-03-03 17:32] LABS: Free Thyroxine Index 2.8 ug/dL (5.93-13.13); T4 (Thyroxine) 8.4 ug/dl (5.53-11.0); Triiodothryronine (T3) Uptake 33 % (23.5-40.5)
[2020-03-03 17:46] LABS: Thyroid Stimulating Hormone 2.07 uIU/mL (0.465-4.68)
== END ==
PROVIDERS: Visit Provider Internal Medicine Adolescent Medicine
DX: R63.5 Abnormal weight gain (principal); R41.89 Other symptoms and signs involving cognitive functions and awareness
CPT/HCPCS: 36415; 80053; 84436; 84443; 84479

== ENCOUNTER → 2020-06-06 10:50 | Outpatient (CLI) | payer MEDICARE, OTHER, SELFPAY ==
[2020-06-06 14:45] LABS: Basophils % 0.2 % (0.1-2.0); Eosinophils # 0.1 K/mm3 (0.0-0.4); Eosinophils % 0.8 % (0.1-12.0); Hematocrit 39.6 % (37.0-47.0); Hemoglobin 12.9 g/dL (12.2-16.2); Lymphocytes # 1.6 K/mm3 (0.7-4.5); Lymphocytes % 19.6 % (10-50); Mean Corpuscular HGB Conc 32.5 g/dL (31.8-35.4); Mean Corpuscular Hemoglobin 28.2 pg (27.0-31.2); Mean Corpuscular Volume 86.8 fl (81-99); Mean Platelet Volume 9.3 fl (7.4-10.4); Monocytes # 0.6 K/mm3 (0.1-1.0); Monocytes % 6.9 % (1.7-9.3); Neutrophils # 5.9 K/mm3 (1.8-7.8); Neutrophils % 72.5 % (37.0-80.0); Platelet Count 301 K/mm3 (142-424); Red Blood Count 4.56 M/mm3 (4.20-5.40); Red Cell Distribution Width 13.4 % (11.5-17.5); White Blood Count 8.1 K/mm3 (4.8-10.8)
[2020-06-06 14:48] LABS: Potassium 4.5 mmoL/L (3.5-5.1)
[2020-06-06 14:50] LABS: Blood Urea Nitrogen 26 mg/dl (7-17); Estimated Glomerular Filt Rate 43 ml/min (>60); GFR (African American) 52 ML/MIN (>60)
[2020-06-06 14:51] LABS: Alkaline Phosphatase 119 U/L (38-126); Aspartate Amino Transferase 23 U/L (14-36); Calcium 9.3 mg/dl (8.4-10.2)
[2020-06-06 15:27] LABS: Chloride 100 mmol/L (98-107); Sodium 136 mmol/L (136-145)
[2020-06-06 15:30] LABS: Alanine Aminotransferase 16 U/L (12-78); Albumin Level 4.3 g/dl (3.5-5.0); Albumin/Globulin Ratio 1.8 (1.1-1.8); Anion Gap 11.5 mEq/L (5-15); Bilirubin,Total 0.7 mg/dl (0.2-1.3); Carbon Dioxide 29 mmol/L (22.0-30.0); Globulin 2.4 g/dL (1.3-3.2); Glucose 88 mg/dl (74-100); Total Protein,Serum 6.7 g/dl (6.3-8.2)
== END ==
PROVIDERS: Visit Provider Internal Medicine Adolescent Medicine
DX: I10 Essential (primary) hypertension (principal)
CPT/HCPCS: 36415; 80053; 83735; 85025

== ENCOUNTER → 2020-07-14 12:28 | Outpatient (CLI) | payer MEDICARE, OTHER, SELFPAY ==
--- NOTE | 2020-07-14 12:36 | FL_ITS ---
PROCEDURE: FL BARIUM SWALLOW MODIFIED CLINICAL INDICATION: APHASIA COMPARISON: No exams were available for comparison TECHNIQUE: Patient administered varying consistencies of barium contrast, while viewed in lateral position under real-time fluoroscopy with cine recording. FLUOROSCOPY TIME:2 minutes and 31 seconds The study was performed in conjunction with speech pathologist. Please see that report & recommendations. FINDINGS: Patient was given varying consistencies of barium. No aspiration or penetration. No early spillage or stasis. There was some difficulty in swallowing a pill which required multiple swallows. There are mild degenerative changes in the cervical spine. IMPRESSION: No aspiration or penetration. Please see speech pathologist report and recommendations. Dictated by: Ethan Murguia MD 07/15/2020 07:38 Ethan Murguia MD in [place] 07/15/2020 07:38
--- NOTE | 2020-07-14 13:49 | HMH.SLMBS2 ---
Speech & Language Evaluation Speech/Language Mod Barium Swallow Start: 07/14/20 13:28 Freq: once Status: Complete Protocol: Document 07/14/20 13:28 SHANAE (Rec: 07/14/20 13:48 SHANAE [id number]) General Information General Current Food Consistancy Regular,Thin Liquids Dentition Good Dentition Oxygen Status Room Air Facial Symmetry Symmetrical Ability to Follow Directions Fair Communication Ability Severe Impairment Voice Comment Ms. Lilly was not oriented to person, place, time, or situation due to her lack of verbal language. She did not bring her communication board with her. MBS Recommendations Diet Dietary Recommendations Regular,Thin Liquids Treatment/Strategies Strategy/Precaution Recommend Sitting Upright (90 deg),No Straw,Liquids from Cup,Small Bites and Sips,Alternate Liquids/Solids Mod Barium Swallow Impressions Summary and Impressions Oral Phase Impression No Impairment (WFL) Oral Phase Summary Ms. Lilly was given the following consistencies: thins via straw and open cup, pudding, mechanical soft, regular, and pill with thins wash. Pill was not coated and required an extra bolus of thin liquids to push pill into pharyngeal phase of swallow. Pharyngeal Phase Impression Mild Impairment Pharyngeal Phase Summary Ms. Lilly exhibited residue of pill stuck between the posterior pharyngeal wall and the pyriform sinuses. She required a large bolus to flush residue down to esophagus. Speech/Language MBS Assessment/Goals/Plan Assessment Date of Evaluation: 07/14/20 Evaluation Type Initial Certification Assessment/Problems Determine least restrictive diet. Does Patient Qualify for Service No Qualify/Failure Comment Ms. Lilly is currently in speech therapy. Spoke with regarding safety of pill intake. It was recommended Ms. Lilly take pills 1 at a time with small bolus. Large
== END ==
PROVIDERS: PCP Internal Medicine Adolescent Medicine; Visit Provider Internal Medicine Adolescent Medicine
DX: R47.01 Aphasia (principal)
CPT/HCPCS: 70371; 92611

== ENCOUNTER 2020-08-02 09:00 | Outpatient (RCR) | payer MEDICARE, OTHER, SELFPAY ==
--- NOTE | 2019-08-12 08:59 | HMH.SLAPHASI ---
Speech & Language Evaluation Speech/Language Aphasia Evaluation Start: 08/12/19 08:31 Freq: once Status: Complete Protocol: Document 08/11/19 17:00 SHANAE (Rec: 08/12/19 08:59 SHANAE [id number]) Aphasia Assessment/Goals/Plan Assessment Date of Evaluation: 08/11/19 Evaluation Type Initial Certification Assessment/Problems Dysphagia, Aphasia, Dysarthria , Memory Loss, other amnesia Does Patient Qualify for Service Yes Qualify/Failure Comment Ms. Lilly is currently unable to verbalize her name, basic wants and needs, and automatic speech tasks. Plan Pt will be seen # times/week 2 for # weeks 16 Anticipate reaching STG in # weeks 8 Anticipate reaching LTG in # weeks 16 Pt/Guardian verbally ack understanding Yes of dx/prognosis/goals G -code Required No STG-Verbal Expressive Language Automatic Speech 80 Sentence Completion 80 Repetitive Abilities 80 Retirement Goals Increase verbal expression skills to Yes communicate w/family & friends. Speech & Language HPI Language Primary Language [place] Aphasia Evaluations Communication Speech Intelligibility Poor. Patient is unable to put together simple CV, VC CVC word combinations. Patient is able to say yes and no however these are incorrect 50 % KALEE. Auditory Comprehension Yes: Word Level Sentences No: Following Directions Paragraph Conversation Reading Comprehension No: Letter Naming Word Naming Verbal Expressive Language No: Automatic Speech Completing Sentences Repetition Abilities Additional Evaluation(s) Additional Tests Ms. Gunderson was alert however unable to be oriented due to difficulty with basic speech tasks. Ms. Gunderson's was present during bedside and reported that her instances of coughing during intake have occurred since she ate chocolate a few months ago. She was sitting completely upright. Mr. Lilly did report dif
== END 2020-08-02 09:05 | disposition home or self-care (01) ==
LOC: ST 09:00
PROVIDERS: Visit Provider Specialist
DX: R47.01 Aphasia (principal); R47.1 Dysarthria and anarthria; R41.3 Other amnesia; R13.10 Dysphagia, unspecified; R05 Cough
CPT/HCPCS: 92507; 92523; 92526

== ENCOUNTER 2020-09-18 13:22 | Emergency (ER) | payer MEDICARE, OTHER, SELFPAY ==
[2020-09-18 13:23] VITALS: BP 100/49; PULSE 60; RESP 18; TEMP 36.3; O2SAT 99; BMI 30.1
[2020-09-18 13:39] VITALS: BMI 30.1
--- NOTE | 2020-09-18 13:40 | XR_ITS ---
PROCEDURE INFORMATION: Exam: XR Right Elbow Exam date and time: 09/18/2020 1:40 PM Age: 79 years old Clinical indication: Injury or trauma; Fall; Blunt trauma (contusions or hematomas); Elbow; Right; Additional info: Fall from bed TECHNIQUE: Imaging protocol: XR Right elbow. Views: 1 or 2 views. COMPARISON: CR WRISTCMRT XR wrist RT min 3V 06/24/2017 11:59 AM FINDINGS: Bones/joints: Osteopenia is present. No definite fracture identified. Soft tissues: Normal. IMPRESSION: No definite fracture identified.
--- NOTE | 2020-09-18 13:40 | XR_ITS ---
PROCEDURE INFORMATION: Exam: XR Right Shoulder Exam date and time: 09/18/2020 1:40 PM Age: 79 years old Clinical indication: Injury or trauma; Fall; Blunt trauma (contusions or hematomas); Shoulder; Right; Additional info: Fall from bed TECHNIQUE: Imaging protocol: XR Right shoulder. Views: 2 or more views. COMPARISON: CR XR CHEST PORTABLE 05/22/2019 1:54 PM FINDINGS: Bones/joints: Comminuted fracture of the right proximal humerus. The glenohumeral joint appears intact. IMPRESSION: Comminuted fracture of the right proximal humerus. The glenohumeral joint appears intact.
--- NOTE | 2020-09-18 13:40 | CT_ITS ---
PROCEDURE INFORMATION: Exam: CT Head Without Contrast Exam date and time: 09/18/2020 1:40 PM Age: 79 years old Clinical indication: Injury or trauma; Fall; Abrasion and blunt trauma (contusions or hematomas); Without loss of consciousness; Injury details: Patient fell out of bed and hit left side of forehead. No loc. Patient has severe alzheimer's. ; Additional info: Fall from bed TECHNIQUE: Imaging protocol: Computed tomography of the head without contrast. 3D rendering (Not supervised by radiologist): MIP and/or 3D reconstructed images were created by the technologist. Radiation optimization: All CT scans at this facility use at least one of these dose optimization techniques: automated exposure control; mA and/or kV adjustment per patient size (includes targeted exams where dose is matched to clinical indication); or iterative reconstruction. COMPARISON: MR HEAD/BRAIN WO/W CON 08/11/2019 2:52 PM FINDINGS: Brain: Prominent sulci. Patchy hypodensity of the cerebral white matter which are nonspecific but likely secondary to microangiopathic changes. Cerebral ventricles: The ventricles are prominent secondary to diffuse volume loss/atrophy. Paranasal sinuses: Visualized sinuses are unremarkable. No fluid levels. Mastoid air cells: Visualized mastoid air cells are well aerated. Bones/joints: Unremarkable. No acute fracture. Soft tissues: Unremarkable. IMPRESSION: Chronic age related changes but no evidence of acute intracranial pathology.
--- NOTE | 2020-09-18 13:43 | HMH.EDFALL ---
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 Usually this kind of fracture will heal on its own as long as you remain in a sling. Please avoid the use of the right arm until cleared to do so by your doctor or an orthopedist. Take [id number] Tylenol for pain. Return to the emergency department if symptoms worsen. Referrals: Laith Agee MD [Primary Care Provider] - Dany Matson MD [Staff Physician] - 3 days (Proximal right-sided humerus fracture) - Critical Care Critical Care Time: No Attestation: On 09/18/20, the high probability of a clinically significant, sudden or life threatening deterioration of the following system(s) required my full and direct attention, intervention and personal management. The time I documented below is in addition to time spent performing reported procedures but includes the following listed in this critical care notation. Medical Decision Making - Medical Records Medical records reviewed: Yes: I reviewed the patient's medical records. - Mason Inquiry Pt receiving controlled substance: No Vital Signs: 09/18/20 13:23 Temperature 97.4 F L Temperature Source Temporal Artery Scan Pulse Rate [Left Radial] 60 Respiratory Rate 18 Blood Pressure [Right Arm] 100/49 L Blood Pressure Mean [Right Arm] 66 Blood Pressure Source [Right Arm] Automatic Cuff Blood Pressure Position [Right Arm] Sitting 02 Sat by Pulse Oximetry 99 Oxygen Delivery Method Room Air Orders (Tests/Meds): ED MEDICATIONS Discontinued Medications Generic Name Dose Route Start Last Admin Trade Name Freq PRN Reason Stop Dose Admin Ketorolac Tromethamine 60 mg 09/18/20 14:45 Ketorolac 60mg/2ml Vial IM 09/18/20 14:46 ONCE ONE - Radiology Data #1 Image(s): Shoulder Image Reviewed: Yes I reviewed the patient's radiology image Preliminary Findings: Abnormal (Proximal humerus fracture) #2 Image(s): Elbow Image Reviewed: Yes I reviewed the patient's radiology image Preliminary Findings: Normal/NAD - CT Data CT Scan: Head Time Received: 14:[address] Reviewed: Yes: I have viewed the radiologist's interpretation Preliminary Findings: Normal/NAD - Physician Consults Physician Consulted: Dano Time: 14:53 Reason -: Orthopedic Eval/Care Comment/Response: Dr. Matson has reviewed the radiographs online and has agreed with my assessment and plan. He asked that the patient call his office tomorrow to make an appointment for later this week. Medical Decision Narrative: The patient was brought into the emergency department by her after having fallen out of the bed earlier today. The patient's work-up revealed a proximal right sided humerus fracture. No other serious injuries were found on the work-up. The patient will be discharged in stable condition with an arm sling and instructions to follow-up with an orthopedist within the next few days. Fall HPI - General Chief Complaint: Fall Stated Complaint: injured right arm and head possibly hip Time Seen by Provider: 09/18/20 13:44 Mode of Arrival: Ambulatory Source of Information: Patient, Spouse Limitations: Altered Mental Status (Chronic dementia) - History of Present Illness HPI Narrative: Brought into the emergency department by her . He states that she fell out of bed earlier today at 6:30 AM. She is complaining of right-sided shoulder pain and elbow pain. She also
[2020-09-18 14:30] VITALS: BP 143/64; PULSE 62; O2SAT 99
--- NOTE | 2020-09-18 14:38 | PC.NURSE ---
Dr Matson paged
--- NOTE | 2020-09-18 14:59 | PC.NURSE ---
SLING APPLIED TO R ARM , DR CALLEJAS SPOKE WITH DR ABEBE AND REQUEST PT TO CALL OFFICE ON SATURDAY FOR APPT
[2020-09-18 15:00] VITALS: BP 133/62; PULSE 60; O2SAT 100
[2020-09-18 15:24] VITALS: BP 133/62; PULSE 62; RESP 20; TEMP 36.3; O2SAT 100
== END 2020-09-18 15:27 | disposition home or self-care (01) ==
PROVIDERS: Emergency Provider Emergency Medicine; PCP Internal Medicine Adolescent Medicine
DX: S42.201A Unspecified fracture of upper end of right humerus, initial encounter for closed fracture (principal); W06.XXXA Fall from bed, initial encounter; Y92.013 Bedroom of single-family (private) house as the place of occurrence of the external cause; I10 Essential (primary) hypertension; G30.9 Alzheimer's disease, unspecified; F02.80 Dementia in other diseases classified elsewhere, unspecified severity, without behavioral disturbance, psychotic disturbance, mood disturbance, and anxiety; S00.81XA Abrasion of other part of head, initial encounter
CPT/HCPCS: 70450; 73030; 73070; 96372; 99282

== ENCOUNTER → 2020-09-27 13:51 | Outpatient (CLI) | payer MEDICARE, OTHER, SELFPAY ==
--- NOTE | 2020-09-27 13:58 | XR_ITS ---
PROCEDURE: XR SHOULDER RT MIN 2V CLINICAL INDICATION: humerus fracture COMPARISON: CR XR SHOULDER RT MIN 2V from 09/18/2020 FINDINGS: There is displaced humeral neck fracture. Distal fracture fragment is displaced medially 16 mm. Humeral head is located. IMPRESSION: Displaced humeral neck fracture with slight increase in medial displacement of the distal fracture fragment Dictated by: Ethan Murguia MD 09/27/2020 15:39 Ethan Murguia MD in [facility] 09/27/2020 15:39
== END ==
PROVIDERS: PCP Internal Medicine Adolescent Medicine; Visit Provider Orthopaedic Surgery
DX: S42.309A Unspecified fracture of shaft of humerus, unspecified arm, initial encounter for closed fracture (principal)
CPT/HCPCS: 73030

== ENCOUNTER → 2020-10-18 12:20 | Outpatient (CLI) | payer MEDICARE, OTHER, SELFPAY ==
--- NOTE | 2020-10-18 12:25 | XR_ITS ---
PROCEDURE: XR SHOULDER RT MIN 2V CLINICAL INDICATION: right proximal humerus fx COMPARISON: CR XR SHOULDER RT MIN 2V from 09/18/2020 CR XR SHOULDER RT MIN 2V from 09/27/2020 FINDINGS: There is a healing displaced humeral neck fracture with developing callus formation. There is persistent medial displacement of the distal fracture fragment which does not appear significantly changed. The humeral head is located IMPRESSION: Healing displaced humeral neck fracture Dictated by: Ethan Murguia MD 10/18/2020 12:56 Ethan Murguia MD in [facility] 10/18/2020 12:56
== END ==
PROVIDERS: PCP Internal Medicine Adolescent Medicine; Visit Provider Orthopaedic Surgery
DX: S42.201D Unspecified fracture of upper end of right humerus, subsequent encounter for fracture with routine healing (principal)
CPT/HCPCS: 73030

== ENCOUNTER → 2020-11-24 15:22 | Outpatient (CLI) | payer MEDICARE, OTHER, SELFPAY ==
[2020-11-24 15:49] LABS: Basophils % 0.2 % (0.1-2.0); Eosinophils # 0.1 K/mm3 (0.0-0.4); Eosinophils % 0.9 % (0.1-12.0); Hematocrit 35.9 % (37.0-47.0); Hemoglobin 11.8 g/dL (12.2-16.2); Lymphocytes # 1.5 K/mm3 (0.7-4.5); Lymphocytes % 18.8 % (10-50); Mean Corpuscular Hemoglobin 29.1 pg (27.0-31.2); Mean Corpuscular Volume 88.1 fl (81-99); Mean Platelet Volume 9.5 fl (7.4-10.4); Monocytes # 0.5 K/mm3 (0.1-1.0); Neutrophils # 5.8 K/mm3 (1.8-7.8); Neutrophils % 74.1 % (37.0-80.0); Platelet Count 277 K/mm3 (142-424); Red Blood Count 4.07 M/mm3 (4.20-5.40); Red Cell Distribution Width 13.9 % (11.5-17.5); White Blood Count 7.8 K/mm3 (4.8-10.8)
[2020-11-24 17:11] LABS: Alanine Aminotransferase 8 U/L (12-78); Albumin Level 3.9 g/dl (3.5-5.0); Albumin/Globulin Ratio 1.5 (1.1-1.8); Alkaline Phosphatase 156 U/L (38-126); Aspartate Amino Transferase 17 U/L (14-36); Bilirubin,Total 0.5 mg/dl (0.2-1.3); Blood Urea Nitrogen 17 mg/dl (7-17); Carbon Dioxide 29 mmol/L (22.0-30.0); Chloride 102 mmol/L (98-107); Estimated Glomerular Filt Rate 48 ml/min (>60); GFR (African American) 58 ML/MIN (>60); Globulin 2.6 g/dL (1.3-3.2); Glucose 92 mg/dl (74-100); Sodium 137 mmol/L (136-145); Total Protein,Serum 6.5 g/dl (6.3-8.2)
[2020-11-24 17:40] LABS: Thyroid Stimulating Hormone 2.47 uIU/mL (0.465-4.68)
== END ==
PROVIDERS: Visit Provider Internal Medicine Adolescent Medicine
DX: R06.9 Unspecified abnormalities of breathing (principal); Z79.899 Other long term (current) drug therapy
CPT/HCPCS: 36415; 80053; 84443; 85025

== ENCOUNTER → 2020-11-29 13:27 | Outpatient (CLI) | payer MEDICARE, OTHER, SELFPAY ==
--- NOTE | 2020-11-29 13:41 | XR_ITS ---
PROCEDURE: XR SHOULDER RT MIN 2V CLINICAL INDICATION: rt proximal humerus fx COMPARISON: CR XR SHOULDER RT MIN 2V from 09/18/2020 CR XR SHOULDER RT MIN 2V from 09/27/2020 CR XR SHOULDER RT MIN 2V from 10/18/2020 FINDINGS: There is a healing humeral neck fracture. Callus formation is developing about the fracture site. There is mild anterior displacement of the distal fracture fragment. No dislocation evident. IMPRESSION: Healing right humeral neck fracture Dictated by: Ethan Murguia MD 11/30/2020 07:57 Ethan Murguia MD in [facility] 11/30/2020 07:57
== END ==
PROVIDERS: PCP Internal Medicine Adolescent Medicine; Visit Provider Orthopaedic Surgery
DX: S42.201D Unspecified fracture of upper end of right humerus, subsequent encounter for fracture with routine healing (principal)
CPT/HCPCS: 73030